=== PATIENT | female | born 1990 | race Caucasian/White ===

== ENCOUNTER 2017-02-21 09:11 | Inpatient (IN) | payer MEDICAID ==
[~2017-02-21] VITALS: Ht 170.2 cm; Wt 77.0 kg
[2017-02-21] VITALS (40 sets, daily range): BP systolic 88–140; BP diastolic 45–94; PULSE 66–146; RESP 17–20; TEMP 97.9–99
[~2017-02-21 09:11] MED LIST: MACR100C PO; PREN0.01 PO; ZOFR4TAB3 SL
[2017-02-21] MEDS ORDERED: LACTATED RINGER'S 1000 ML INJ 1,000 ML IV SCH (09:26)
[2017-02-21] MEDS ORDERED: LACTATED RINGER'S 1000 ML INJ 1,000 ML IV PRN (09:26)
--- NOTE | 2017-02-21 09:26 | PD ---
HPI Chief Complaint Contractions since early this morning Date Seen: Feb 21, 2017 Time Seen: 09:21 Travel History International Travel<30 Days: No Contact w/Intl Traveler<30Days: No Known Affected Area: No History of Present Illness HPI [age] female at 37 weeks today comes in today complaining of contractions for the past several hours markedly more intense over the past 2 hours. Denies any complications or problems denies rupture membranes or vaginal bleeding. Para: 2 : 3 History Past Medical History Medical History: Denies Significant Hx Obstetric History Obstetric History Spontaneous vaginal delivery 2 Past Surgical History Surgical History: No Previous Surgery Family History Family History: Negative Social History Alcohol Use: No Tobacco Use: No Substance Abuse: No Allergies-Medications (Allergen,Severity, Reaction): Coded Allergies: No Known Allergies (Verified , 07/26/16) Home Meds Active Scripts Multivit/Min/Fol Ac/Iron/Pren ( Vit ( Plus)) Tab1 Tab PO DAILY #100 TAB Ref 3 Prov:Melanie Nam MD 07/26/16 Ondansetron (Zofran ODT)4 Mg Tab4 Mg SL q6h PRN (NAUSEA) #10 TAB FOR NAUSEA/VOMITING Prov:Melanie Nam MD 07/26/16 Nitrofurantoin Monohyd Macro (Macrobid)100 Mg [id number] Mg PO BID #10 CAP Prov:Melanie Nam MD 07/26/16 Review of Systems Except as stated in HPI: all other systems reviewed are Neg Physical Exam Narrative GENERAL: Well-nourished, well-developed patient. SKIN: Warm and dry. HEAD: Normocephalic and atraumatic. EYES: No scleral icterus. No injection or drainage. ENT: No nasal drainage noted. Mucous membranes pink. Airway patent. NECK: Supple, trachea midline. No JVD. CARDIOVASCULAR: Regular rate and rhythm without murmurs, gallops, or rubs. RESPIRATORY: Breath sounds equal bilaterally. No accessory muscle use. BREASTS: Bilateral exam showed no masses , no retractions, no nipple discharge. ABDOMEN/GI: Abdomen soft, non-tender, bowel sounds present, no rebound, no guarding Gravid to [-] weeks size Fundal Height: [-40] GENITOURINARY: External Genitalia: intact and normal in appearance BUS glands: Normal Cervix: Mid position Dilatation: 5-6 Effacement: 80 Station: -2 Presentation: Vertex Membranes: Intact Uterine Contractions: Every 3 minutes FHT's: Category: 1 Baseline: 140 Reactive: Moderate Variability: Moderate Decels: Absent EXTREMITIES: No cyanosis or edema. BACK: Nontender without obvious deformity. No CVA tenderness. NEUROLOGICAL: Awake and alert. Motor and sensory grossly within normal limits. Five out of 5 muscle strength in all muscle groups. Normal speech. Data Data Vital Signs Reviewed: Yes MDM Plan 27-year-old female who is at 37 weeks gestation comes in active labor. GBS is unknown at this time Dr. Jaramillo was notified of patient's admission Diagnosis Diagnosis: Primary Impression: 37 weeks gestation of Additional Impression: Irregular contractions Roxanna Hong MD Feb 21, 2017 09:26
[2017-02-21] MEDS ORDERED: ONDANSETRON HCL 4 MG/2 ML VIAL IV PRN (09:30)
[2017-02-21] MEDS ORDERED: CITRIC ACID-SODIUM CITRATE LIQ 30 ML UDC PO SCH (09:30)
[2017-02-21] MEDS ORDERED: LIDOCAINE HCL 1% 50 ML VIAL INFIL PRN (09:30)
[2017-02-21] MEDS ORDERED: MINERAL OIL 10 ML VIAL TOPICAL PRN (09:30)
[2017-02-21] MEDS ORDERED: OXYTOCIN 30 UNITS-500ML PREMIX 500 ML IV ONE ×2 (09:30→12:00)
[2017-02-21] MEDS ORDERED: SODIUM CHLORID 0.9% 500 ML INJ 500 ML IV PRN (09:30)
[2017-02-21] MEDS ORDERED: LIDOCAINE HCL 1% 50 ML VIAL I-DERMAL PRN (09:30)
[2017-02-21 09:45] LABS: BASOPHIL # 0.1 TH/MM3 (0-0.2); BASOPHIL % 0.4 % (0.0-2.0); EOSINOPHIL # 0.1 TH/MM3 (0-0.4); EOSINOPHIL % 0.7 % (0.0-4.0); HEMATOCRIT 33.4 % (35.0-46.0); HEMO FLAGS DIFF FINAL; LYMPH % 21.3 % (9.0-44.0); MEAN CELL VOLUME 82.1 FL (80.0-100.0); MEAN CORPUSCULAR HGB CONC 32.9 % (32.0-36.0); MONO % 6.9 % (0.0-8.0); NEUT % 70.7 % (16.0-70.0); PLATELET COUNT 283 TH/MM3 (150-450); RED BLOOD COUNT 4.07 MIL/MM3 (4.00-5.30); RED CELL DISTRIBUTION WIDTH 13.7 % (11.6-17.2); WHITE BLOOD COUNT 14.1 TH/MM3 (4.0-11.0)
[2017-02-21] MEDS ORDERED: SODIUM CHLOR 0.9% 1000 ML INJ 1,000 ML IV PRN (09:46)
[2017-02-21] MEDS ORDERED: fentaNYL 2MCG-BUPIV 0.125% INJ 100 ML ONE (09:56)
[2017-02-21] MEDS ORDERED: OXYTOCIN 30 UNITS-500ML PREMIX 500 ML IV SCH (10:30)
[2017-02-21] MEDS ORDERED: DO NOT ADMINISTER ANTICOAGULANTS XX PRN (10:45)
[2017-02-21] MEDS ORDERED: ePHEDrine/NS 25 MG/5 ML SYR IV PRN (10:45)
[2017-02-21] MEDS ORDERED: NO SYSTEM NARCOTICS XX PRN (10:45)
[2017-02-21] MEDS ORDERED: fentaNYL 2MCG-BUPIV 0.125% 100 ML EPIDURAL SCH (10:45)
--- NOTE | 2017-02-21 11:52 | PD.OB.DELI ---
Anesthesia: Epidural Episiotomy: None Vaginal Delivery: Normal Presentation: Occiput anterior Nuchal Cord: None Infant: Male One Minute : 8 Five Minute : 9 Weight: 6-9 Placenta: Manual removal Laceration: 1 deg Radha Jaramillo MD Feb 21, 2017 11:52
[2017-02-21] MEDS ORDERED: ALUMINUM/MAGNESIUM/SIMETH 30 ML CUP PO PRN (12:00)
[2017-02-21] MEDS ORDERED: ZOLPIDEM TARTRATE 5 MG TAB PO PRN (12:00)
[2017-02-21] MEDS ORDERED: ONDANSETRON ODT 4 MG TAB PO PRN (12:00)
[2017-02-21] MEDS ORDERED: BENZOCAINE 20% TOPICAL SPRAY 60 ML CAN TOPICAL PRN (12:00)
[2017-02-21] MEDS ORDERED: SODIUM CHLORIDE 0.9% FLUSH 10 ML FLUSH IV FLUSH PRN (12:00)
[2017-02-21] MEDS ORDERED: ACETAMINOPHEN 325 MG TAB PO PRN (12:00)
[2017-02-21] MEDS ORDERED: DOCUSATE SODIUM 50 MG/SENNA 8.6 MG TAB PO PRN (12:00)
[2017-02-21] MEDS ORDERED: WITCH HAZEL 50%/GLYCERIN 12.5% 40 PAD JAR TOPICAL PRN (12:00)
[2017-02-21 15:04] LABS: RAPID PLASMA REAGIN SCREEN NON-REACTIVE (NON-REACTVE)
[2017-02-21] MEDS ORDERED: DIPHTH/TETANUS/ACEL PERTUSSIS (BOOSTER) 0.5 ML VIAL/PFS IM ONE (16:00)
[2017-02-21] MEDS ORDERED: MEASLES, MUMPS, RUBELLA VACCINE 0.5 ML VIAL SQ ONE (16:00)
[2017-02-21] MEDS: IBUPROFEN 600 MG TAB PO PRN (20:29)
[2017-02-21] MEDS ORDERED: SODIUM CHLORIDE 0.9% FLUSH 10 ML FLUSH IV FLUSH SCH (21:00)
[2017-02-22] MEDS: IBUPROFEN 600 MG TAB PO PRN ×2 (02:05→09:26)
[2017-02-22] MEDS: ACETAMINOPHEN/HYDROcodone 325 MG/7.5 MG TAB PO PRN ×2 (04:46→10:56)
[2017-02-22 08:30] VITALS: BP 126/67; PULSE 66; RESP 18; TEMP 97.9
--- NOTE | 2017-02-22 11:44 | HHI.OB ---
Subjective Post Day: 1 Remarks Was in shower when I came in and planned to return at lunch has since asked for discharge to be home with [age] year old Objective Vitals/I&O Vital Signs Date Time Temp Pulse Resp B/P Pulse Ox O2 Delivery O2 Flow Rate FiO2 02/21/17 20:30 97.9 74 20 140/79 02/21/17 16:35 99.0 70 18 115/66 02/21/17 13:15 74 110/61 02/21/17 13:15 17 02/21/17 13:00 98.8 02/21/17 13:00 66 108/62 02/21/17 12:46 66 115/65 02/21/17 12:30 71 111/70 02/21/17 12:17 89 108/85 02/21/17 12:00 18 02/21/17 11:56 80 118/69 02/21/17 11:51 86 109/69 02/21/17 11:46 71 112/60 02/21/17 11:45 18 Objective Remarks Medications and IVs Current Medications Medications (Trade) Dose Ordered Sig/Rigo Route Start Time Stop Time Status Last Admin (NS Flush) 2 ml BID IV FLUSH 02/21/17 21:00 (NS Flush) 2 ml UNSCH PRN IV FLUSH 02/21/17 12:00 (Tylenol) 650 mg Q4H PRN PO 02/21/17 12:00 02/22/17 02:05 (Motrin) 600 mg Q6H PRN PO 02/21/17 12:00 02/22/17 09:26 (Americaine 20% Top Spr) 1 spray Q4H PRN TOPICAL 02/21/17 12:00 02/21/17 20:29 (Tucks Pads) 1 applic QID PRN TOPICAL 02/21/17 12:00 02/21/17 20:29 (Britt-Colace) 2 tab Q12H PRN PO 02/21/17 12:00 (Ambien) 5 mg HS PRN PO 02/21/17 12:00 (Mag-Al Plus Susp Liq) 15 ml Q8H PRN PO 02/21/17 12:00 (Zofran Odt) 4 mg Q6H PRN PO 02/21/17 12:00 ([place] 7.5-325 Mg) 1 tab Q6H PRN PO 02/22/17 03:30 02/22/17 10:56 Assessment/Plan Assessment and Plan Home with motrin comfortable with no questions Delfina Beltre MD Feb 22, 2017 11:44
--- NOTE | 2017-02-22 11:46 | HHI.DCPOC ---
Discharge Care Plan Report Symptoms to Your Doctor -Temperate above 100.5 degrees -Redness, of incision or excessive or foul smelling drainage -Unusual pain or calf pain -Increased vaginal bleeding -Painful or difficulty urinating -Feelings of extreme sadness or anxiety after 2 weeks Goals to Promote Your Health * To prevent worsening of your condition and complications * To maintain your health at the optimal level Directions to Meet Your Goals Take your medications as prescribed Follow your dietary instruction Follow activity as directed Ensure plenty of rest for recovery Drink fluids for hydration Keep your appointments as scheduled Take your immunizations and boosters as scheduled If your symptoms worsen call your PCP, if no PCP go to Urgent Care Center or Emergency Room Smoking is Dangerous to Your Health. Avoid second hand smoke Call the 24-hour crisis hotline for domestic abuse at Delfina Beltre MD Feb 22, 2017 11:46
== END 2017-02-22 14:32 | disposition home or self-care (01) | DRG 767 ==
LOC: HOBED 09:11 → H2EA 09:30 → H1EA 14:10
PROVIDERS: ADMIT Obstetrics & Gynecology; ATTEND Obstetrics & Gynecology
PROC: 10E0XZZ Delivery of Products of Conception, External Approach (ICD-10-PCS; principal; 2017-02-21)
PROC: 10D17ZZ Extraction of Products of Conception, Retained, Via Natural or Artificial Opening (ICD-10-PCS; 2017-02-21)
PROC: 3E0S3CZ (ICD-10-PCS; 2017-02-21)
PROC: 00HU33Z Insertion of Infusion Device into Spinal Canal, Percutaneous Approach (ICD-10-PCS; 2017-02-21)
DX: O70.0 First degree perineal laceration during delivery (principal); Z37.0 Single live birth; Z3A.37 37 weeks gestation of pregnancy
CPT/HCPCS: 59025; 85025; 86592; 86900; 86901; 88307; 99285; J2590; J3010; J7120

== ENCOUNTER 2018-02-18 09:43 | Inpatient (IN) | payer SELFPAY ==
[~2018-02-18] VITALS: Ht 170.2 cm; Wt 66.0 kg
[2018-02-18] VITALS (13 sets, daily range): BP systolic 118–141; BP diastolic 62–92; PULSE 45–101; RESP 15–19; TEMP 97.7–98.2; O2SAT 92–99
[~2018-02-18 09:43] MED LIST changes: -MACR100C PO; -ZOFR4TAB3 SL
[2018-02-18] MEDS ORDERED: IOHEXOL 350 MG/ML 10 ML VIAL (for RAD DIAG) IVCONTRAST ONE (09:44)
[2018-02-18] MEDS ORDERED: SODIUM CHLOR 0.9% 1000 ML INJ 1,000 ML IV SCH (10:54)
[2018-02-18] MEDS ORDERED: MORPHINE SULFATE 8 MG/ML INJ IV PUSH ONE (11:00)
[2018-02-18] MEDS ORDERED: ONDANSETRON HCL 4 MG/2 ML VIAL IVP ONE (11:00)
[2018-02-18] MEDS ORDERED: ALUMINUM/MAGNESIUM/SIMETH 30 ML CUP PO ONE (11:00)
[2018-02-18] MEDS ORDERED: LIDOCAINE VISCOUS 2% SOLN 15 ML UDC PO ONE (11:00)
--- NOTE | 2018-02-18 11:28 | PD ---
HPI Chief Complaint: Abdominal Pain Time Seen by Provider: 10:53 Travel History International Travel<30 days: No Contact w/Intl Traveler<30days: No History of Present Illness HPI 28-year-old female complains of abdominal pain for about 2 days. It is generalized constant and severe. The patient finds that taking long showers helps. She reports chest pain started last night. No vomiting or fever. No diarrhea. No urinary complaint. No similar prior episode. There is no pleuritic chest pain or cough. PFSH Past Medical History Hx Anticoagulant Therapy: No Cardiovascular Problems: No Chemotherapy: No Cerebrovascular Accident: No Diabetes: No Diminished Hearing: No Gastrointestinal Disorders: Yes (chronic abdominal pain ) Respiratory: No Tetanus Vaccination: < 5 Years Influenza Vaccination: No ?: Unknown LMP: I HAVE AN IUD : 1 Para: 1 Miscarriage: 0 : 0 Past Surgical History Surgical History: No Previous Surgery Hysterectomy: No Social History Alcohol Use: No Tobacco Use: No Substance Use: Yes (CANNABIS OCC) Allergies-Medications (Allergen,Severity, Reaction): Coded Allergies: No Known Allergies (Verified Adverse Reaction, Unknown, 02/18/18) Reported Meds & Prescriptions Reported Meds & Active Scripts Active No Active Prescriptions or Reported Medications Review of Systems Except as stated in HPI: all other systems reviewed are Neg General / Constitutional: No: Fever Cardiovascular: Positive: Chest Pain or Discomfort Respiratory: No: Cough, Shortness of Breath Physical Exam Narrative GENERAL: 28 yo F, WNWD, moderate distress 2/2 pain and/or anxiety Vital Signs Date Time Temp Pulse Resp B/P (MAP) Pulse Ox O2 Delivery O2 Flow Rate FiO2 02/18/18 11:24 99 Room Air 02/18/18 10:55 77 19 138/88 (105) 99 Room Air 02/18/18 09:58 98.2 101 18 135/92 (106) 96 SKIN: Warm and dry. HEAD: Atraumatic. Normocephalic. EYES: Pupils equal and round. No scleral icterus. No injection or drainage. ENT: No nasal bleeding or discharge. Mucous membranes pink and moist. NECK: Trachea midline. No JVD. CARDIOVASCULAR: Regular rate and rhythm. RESPIRATORY: No accessory muscle use. Clear to auscultation. Breath sounds equal bilaterally. GASTROINTESTINAL: Soft. No focus of tenderness. MUSCULOSKELETAL: Extremities without clubbing, cyanosis, or edema. No obvious deformities. NEUROLOGICAL: Awake and alert. No obvious cranial nerve deficits. Motor grossly within normal limits. Five out of 5 muscle strength in the arms and legs. Normal speech. PSYCHIATRIC: Appropriate mood and affect; insight and judgment normal. Data Data Last Documented VS Vital Signs Date Time Temp Pulse Resp B/P (MAP) Pulse Ox O2 Delivery O2 Flow Rate FiO2 02/18/18 13:35 58 17 127/79 (95) 98 Nasal Cannula 02/18/18 12:15 2.00 02/18/18 09:58 98.2 Orders Orders Complete Blood Count With Diff (02/18/18 10:54) Comprehensive Metabolic Panel (02/18/18 10:54) Lipase (02/18/18 10:54) Lactic Acid (02/18/18 10:54) Urinalysis - C+S If Indicated (02/18/18 10:54) Iv Access Insert/Monitor (02/18/18 10:54) Ecg Monitoring (02/18/18 10:54) Oximetry (02/18/18 10:54) Ondansetron Inj (Zofran Inj) (02/18/18 11:00) Sodium Chlor 0.9% 1000 Ml Inj (Ns 1000 M (02/18/18 10:54) Sodium Chloride 0.9% Flush (Ns Flush) (02/18/18 11:00) Electrocardiogram (02/18/18 10:54) Chest, Single Ap (02/18/18 10:54) Morphine Inj (Morphine Inj) (02/18/18 11:00) Al-Mag Hy-Si 40-40-4 Mg/Ml Liq (Mag-Al P (02/18/18 11:00) Lidocaine 2% Viscous (Xylocaine 2% Visco (02/18/18 11:00) Ed Urine Pregnancytest Poc (02/18/18 10:54) Ct Abd/Pel W Iv Contrast(Rout) (02/18/18 10:57) Ct Pulmonary Angiogram (02/18/18 11:44) Sodium Chlor 0.9% 1000 Ml Inj (Ns 1000 M (02/18/18 12:15) Piperacil-Tazo 4.5 Gm Premix (Zosyn 4.5 (02/18/18 12:15) Iohexol 350 Inj (Omnipaque 350 Inj) (02/18/18 09:44) Hydromorphone Pf Inj (Dilaudid Pf Inj) (02/18/18 13:00) Gastrografin Swallow (02/18/18 ) Admit Order (Ed Use Only) (02/18/18 ) Machine Shop Helper / Telemetry MEGAN.Q8H (02/18/18 13:33) Vital Signs (Adult) Q4H (02/18/18 13:33) Diet Npo (02/18/18 Lunch) Activity Bed Rest (02/18/18 13:33) Notify Dr: Other (02/18/18 13:33) Labs Laboratory Tests Test 02/18/18 11:15 White Blood Count 23.8 TH/MM3 Red Blood Count 5.46 MIL/MM3 Hemoglobin 13.8 GM/DL Hematocrit 41.2 % Mean Corpuscular Volume 75.3 FL Mean Corpuscular Hemoglobin 25.2 PG Mean Corpuscular Hemoglobin Concent 33.5 % Red Cell Distribution Width 17.8 % Platelet Count 492 TH/MM3 Mean Platelet Volume 9.8 FL Neutrophils (%) (Auto) 88.1 % Lymphocytes (%) (Auto) 6.1 % Monocytes (%) (Auto) 5.6 % Eosinophils (%) (Auto) 0.0 % Basophils (%) (Auto) 0.2 % Neutrophils # (Auto) 21.0 TH/MM3 Lymphocytes # (Auto) 1.5 TH/MM3 Monocytes # (Auto) 1.3 TH/MM3 Eosinophils # (Auto) 0.0 TH/MM3 Basophils # (Auto) 0.0 TH/MM3 CBC Comment DIFF FINAL Differential Comment Blood Urea Nitrogen 41 MG/DL Creatinine 1.51 MG/DL Random Glucose 134 MG/DL Total Protein 10.7 GM/DL Albumin 5.5 GM/DL Calcium Level 9.5 MG/DL Alkaline Phosphatase 83 U/L Aspartate Amino Transf (AST/SGOT) 28 U/L Alanine Aminotransferase (ALT/SGPT) 51 U/L Total Bilirubin 0.8 MG/DL Sodium Level 137 MEQ/L Potassium Level 3.1 MEQ/L Chloride Level 98 MEQ/L Carbon Dioxide Level 21.3 MEQ/L Anion Gap 18 MEQ/L Estimat Glomerular Filtration Rate 40 ML/MIN Lactic Acid Level 1.8 mmol/L Lipase 118 U/L MDM Medical Decision Making Medical Screen Exam Complete: Yes Emergency Medical Condition: Yes Medical Record Reviewed: Yes Differential Diagnosis Gastritis, pancreatitis, appendicitis, acute cholecystitis, ascending cholangitis, AAA, perforated viscous, mesenteric ischemia, hepatitis, cystitis, hydronephrosis/hydroureter/nephroureter calculus, mesenteric adenitis, biliary colic Narrative Course CBC & BMP Diagram 02/18/18 11:15 Total Protein 10.7 H, Albumin 5.5 H, Calcium Level 9.5, Alkaline Phosphatase 83 , Aspartate Amino Transf (AST/SGOT) 28, Alanine Aminotransferase (ALT/SGPT) 51, Total Bilirubin 0.8 Anion gap is 18 Lactic acid is 1.8 U preg: negative CT called shortly after receipt of CXR images. Pt with significant pain relief after 5mg Morphine. calls placed to GI, thoracic surgery and forensic engineer service at 115pm d/w Dr Perez of GI at 120pm, gastrograffin swallow ordered, no endoscopy d/w Dr Thomas of thoracic surgery d/w Dr Leon of forensic engineer service Critical Care Narrative Aggregate critical care time was 45 minutes. Time to perform other separately billable procedures was not included in the critical care time. My time did not include minutes spent treating any other patients simultaneously or on activities that did not directly contribute to the patient's treatment. The services I provided to this patient were to treat and/or prevent clinically significant deterioration that could result in: Septic shock, cardiopulmonary arrest I provided critical care services requiring my management, as noted below: Chart data review, documentation time, medication orders and management, vital sign assessments/reviewing monitor data, ordering and reviewing lab tests, ordering and interpreting/reviewing x-rays and diagnostic studies, care of the patient and discussion of the patient with the admitting physicians. Diagnosis Primary Impression: Pneumomediastinum Additional Impressions: Dry heaves Hypokalemia Admitting Information Admitting Physician Requests: Admit Scripts No Active Prescriptions or Reported Meds Dany Boone MD Feb 18, 2018 11:28
--- NOTE | 2018-02-18 11:32 | RADRPT ---
EXAM DATE/TIME: 02/18/2018 11:00 [facility] COMPARISON: No previous studies available for comparison. INDICATIONS : Chest pain. MEDICAL HISTORY : None. SURGICAL HISTORY : None. ENCOUNTER: Initial ACUITY: 2 days PAIN SCORE: 8/10 LOCATION: Bilateral chest FINDINGS: Subcutaneous emphysema is noted within the right chest wall and right supraclavicular region. No defi nite pneumothorax is identified on the right on this plain film. CT of the chest would be more sensit mayte to rule out subtle pneumothorax in this patient if clinically indicated. The heart is normal. The pulmonary vascular pattern is normal. The lungs are clear. CONCLUSION: Subcutaneous emphysema within the right chest wall and right supraclavicular region there no definite pneumothorax is identified on the right on the plain film. CT of the chest would be more sensitive t o rule out subtle pneumothorax in this patient if clinically indicated. Gian Mendez MD on February 18, 2018 at 11:26 Board Certified Radiologist. This report was verified electronically.
[2018-02-18 12:00] LABS: BASOPHIL % 0.2 % (0.0-2.0); HEMATOCRIT 41.2 % (35.0-46.0); HEMOGLOBIN 13.8 GM/DL (11.6-15.3); LYMPH % 6.1 % (9.0-44.0); LYMPHOCYTE # 1.5 TH/MM3 (1.0-4.8); MEAN CELL VOLUME 75.3 FL (80.0-100.0); MEAN CORPUSCULAR HEMOGLOBIN 25.2 PG (27.0-34.0); MEAN CORPUSCULAR HGB CONC 33.5 % (32.0-36.0); MEAN PLATELET VOLUME 9.8 FL (7.0-11.0); MONO % 5.6 % (0.0-8.0); MONOCYTE # 1.3 TH/MM3 (0-0.9); NEUT % 88.1 % (16.0-70.0); PLATELET COUNT 492 TH/MM3 (150-450); RED BLOOD COUNT 5.46 MIL/MM3 (4.00-5.30); RED CELL DISTRIBUTION WIDTH 17.8 % (11.6-17.2); WHITE BLOOD COUNT 23.8 TH/MM3 (4.0-11.0)
[2018-02-18 12:12] LABS: ALBUMIN 5.5 GM/DL (3.4-5.0); AST (GOT) 28 U/L (15-37); BICARBONATE 21.3 MEQ/L (21.0-32.0); BLOOD UREA NITROGEN 41 MG/DL (7-18); CALCIUM 9.5 MG/DL (8.5-10.1); CHLORIDE 98 MEQ/L (98-107); CREATININE 1.51 MG/DL (0.50-1.00); GLOMERULAR FILTRATION RATE 40 ML/MIN (>89); GLUCOSE,RANDOM 134 MG/DL (74-106); SODIUM (NA) 137 MEQ/L (136-145)
[2018-02-18 12:14] LABS: ALT (GPT) 51 U/L (10-53)
[2018-02-18] MEDS ORDERED: SODIUM CHLOR 0.9% 1000 ML INJ 1,000 ML IV ONE (12:15)
[2018-02-18] MEDS ORDERED: PIPERACIL-TAZO 4.5 GM PREMIX 100 ML IV ONE (12:15)
[2018-02-18 12:16] LABS: ALKALINE PHOSPHATASE 83 U/L (45-117); TOTAL BILIRUBIN ADULT 0.8 MG/DL (0.2-1.0); TOTAL PROTEIN 10.7 GM/DL (6.4-8.2)
--- NOTE | 2018-02-18 12:48 | RADRPT ---
EXAM DATE/TIME: 02/18/2018 12:25 [facility] COMPARISON: No previous studies available for comparison. INDICATIONS : Generalized, constant abdominal pain. IV CONTRAST: 72 cc Omnipaque 350 (iohexol) IV ; Cumulative dose for multiple exams. ORAL CONTRAST: No oral contrast ingested. RADIATION DOSE: 8.5 CTDIvol (mGy) MEDICAL HISTORY : Chronic abdominal pain. SURGICAL HISTORY : None. ENCOUNTER: Initial ACUITY: 2 days PAIN SCALE: 4/10 LOCATION: Bilateral lower quadrant TECHNIQUE: Volumetric scanning of the abdomen and pelvis was performed. Using automated exposure control and ad justment of the mA and/or kV according to patient size, radiation dose was kept as low as reasonably achievable to obtain optimal diagnostic quality images. DICOM format image data is available electro nically for review and comparison. FINDINGS: LOWER LUNGS: Pneumomediastinum is noted. The visualized lower lungs are clear. LIVER: Homogeneous density without lesion. There is no dilation of the biliary tree. No calcified gallston es. SPLEEN: Normal size without lesion. PANCREAS: Within normal limits. KIDNEYS: Normal in size and shape. There is no mass, stone or hydronephrosis. ADRENAL GLANDS: Within normal limits. VASCULAR: There is no aortic aneurysm. BOWEL/MESENTERY: The stomach, small bowel, and colon demonstrate no acute abnormality. There is no free intraperitone al air or fluid. ABDOMINAL WALL: Within normal limits. RETROPERITONEUM: There is no lymphadenopathy. BLADDER: No wall thickening or mass. REPRODUCTIVE: Within normal limits. IUD is noted. INGUINAL: There is no lymphadenopathy or hernia. MUSCULOSKELETAL: Within normal limits for patient age. CONCLUSION: 1. Pneumomediastinum of indeterminate etiology. 2. No free intraperitoneal air. Gian Mendez MD on February 18, 2018 at 12:40 Board Certified Radiologist. This report was verified electronically.
--- NOTE | 2018-02-18 12:49 | RADRPT ---
EXAM DATE/TIME: 02/18/2018 12:25 [facility] COMPARISON: No previous studies available for comparison. INDICATIONS : Chest pain and shortness of breath. IV CONTRAST: 72 cc Omnipaque 350 (iohexol) IV ; Cumulative dose for multiple exams. RADIATION DOSE: 6.28 CTDIvol (mGy) MEDICAL HISTORY : Chronic abdominal pain. SURGICAL HISTORY : None. ENCOUNTER: Initial ACUITY: 4 - 6 days PAIN SCALE: 3/10 LOCATION: Bilateral upper chest TECHNIQUE: Volumetric scanning of the chest was performed using a pulmonary embolism protocol MIP images were re constructed. Using automated exposure control and adjustment of the mA and/or kV according to patien t size, radiation dose was kept as low as reasonably achievable to obtain optimal diagnostic quality images. DICOM format image data is available electronically for review and comparison. Follow-up recommendations for detected pulmonary nodules are based at a minimum on nodule size and pa tient risk factors according to Fleischner Society Guidelines. FINDINGS: There is extensive subcutaneous emphysema seen in the upper chest. This extends around the right shou lder region. There is extensive mediastinal air. Air is seen in these extradural spinal canal. PULMONARY ARTERIES: No filling defects are seen in the pulmonary arteries through the segmental level. LUNGS: There is no consolidation or pneumothorax . No concerning pulmonary nodule is visualized. PLEURAE: There is no pleural thickening or pleural effusion. MEDIASTINUM: Again noted is the extensive pneumomediastinum and this extends from the thoracic inlet level down to the lower chest around the distal esophagus. MUSCULOSKELETAL: Within normal limits for patient age. MISCELLANEOUS: Air is seen in the retrocrural region in the upper abdomen. CONCLUSION: 1. Extensive pneumomediastinum and subcutaneous emphysema. Air is seen to surround the thecal sac and extends into the retrocrural region. 2. No pulmonary embolus. David Dominguez MD on February 18, 2018 at 12:40 Board Certified Radiologist. This report was verified electronically.
[2018-02-18] MEDS ORDERED: HYDROmorphone HCL PF 2 MG/ML VIAL IV PUSH ONE ×2 (13:00→14:00)
[2018-02-18] MEDS ORDERED: LACTATED RINGER'S 1000 ML INJ 1,000 ML IV ONE (14:15)
--- NOTE | 2018-02-18 14:59 | RADRPT ---
EXAM DATE/TIME: 02/18/2018 14:11 [facility] COMPARISON: No previous studies available for comparison. INDICATIONS : Chest pain. Possible torned esophagus. FLUORO TIME: 1.2 minutes IMAGE COUNT: 17 CONTRAST: 1. Gastrografin (Diatrizoate Meglumine and Diatrizoate Sodium) MEDICAL HISTORY : None. SURGICAL HISTORY : None. ENCOUNTER: Initial ACUITY: 4 - 6 days PAIN SCORE: 10/10 LOCATION: Chest. FINDINGS: Examination of the esophagus demonstrates the swallowing function to be normal. There is no evidence of aspiration or penetration. The body of the esophagus is unremarkable. The esophageal transit ti me is normal. No esophageal tear is seen. The patient has pneumomediastinum and subcutaneous emphysema. CONCLUSION: Unremarkable examination of the esophagus. No esophageal tear or extravasation was s een. David Dominguez MD on February 18, 2018 at 14:55 Board Certified Radiologist. This report was verified electronically.
[2018-02-18] MEDS ORDERED: DIATRIZOATE MEGLUM/DIATRIZOATE SOD 120 ML BTL (for RAD DIAG) PO ONE (15:06)
--- NOTE | 2018-02-18 15:09 | PD.CONS ---
HPI History of Present Illness This is a 28 year old F who denies past medical history. Pt presented to [facility] today with complaints of abdominal pain for the past 2 days, states intermittent, generalized to entire abdomen. Unsure of aggravating factors but states hot showers help to relieve the pain. Denies associated nausea and vomiting, however reports she was dry heaving yesterday. Does admit to some occasional dysphagia, denies odynophagia. Also complaining of chest pain that began last night. CTA done in ER revealed extensive pneumomediastinum and subcutaneous emphysema. Air is seen to surround the thecal sac and extends into the retrocrural region. Cardiothoracic surgery and razor grinder has also been consulted along with our service to further management. Barium swallow ordered, results pending. Pt denies ETOH and smoking. According to ER notes does admit to occasional marijuana use. Denies ever having EGD in the past. (Bety Boles) PFSH Past Medical History Denies Past Surgical History IUD placement (Bety Boles) Coded Allergies: No Known Allergies (Verified Allergy, Unknown, 02/18/18) Social History Denies ETOH Denies smoking Admits to occasional marijuana (Bety Boles) Review of Systems Gastrointestinal: COMPLAINS OF: Abdominal pain, Constipation, Difficulty Swallowing, DENIES: Black stools, Bloody stools, Diarrhea, Nausea, Vomiting, Odynophagia, Swelling of Abdomen, Heartburn, Hematemesis (Bety Boles) GI Exam Vitals I&O Vital Signs Date Time Temp Pulse Resp B/P (MAP) Pulse Ox O2 Delivery O2 Flow Rate FiO2 02/18/18 14:33 60 18 122/68 (86) 99 Nasal Cannula 02/18/18 13:35 58 17 127/79 (95) 98 Nasal Cannula 02/18/18 12:15 58 15 129/71 (90) 98 Nasal Cannula 2.00 02/18/18 11:30 68 16 134/82 (99) 98 Nasal Cannula 2.00 02/18/18 11:24 99 Room Air 02/18/18 10:55 77 19 138/88 (105) 99 Room Air 02/18/18 09:58 98.2 101 18 135/92 (106) 96 I/O 3/23/18 302/17/18 02/18/18 02/18/18 02/18/18 07:00 15:00 23:00 07:00 15:00 23:00 Intake Total 2100 ml Balance 2100 ml Intake IV Total 2100 ml Laboratory Test 02/18/18 11:15 White Blood Count 23.8 TH/MM3 Red Blood Count 5.46 MIL/MM3 Hemoglobin 13.8 GM/DL Hematocrit 41.2 % Mean Corpuscular Volume 75.3 FL Mean Corpuscular Hemoglobin 25.2 PG Mean Corpuscular Hemoglobin Concent 33.5 % Red Cell Distribution Width 17.8 % Platelet Count 492 TH/MM3 Mean Platelet Volume 9.8 FL Neutrophils (%) (Auto) 88.1 % Lymphocytes (%) (Auto) 6.1 % Monocytes (%) (Auto) 5.6 % Eosinophils (%) (Auto) 0.0 % Basophils (%) (Auto) 0.2 % Neutrophils # (Auto) 21.0 TH/MM3 Lymphocytes # (Auto) 1.5 TH/MM3 Monocytes # (Auto) 1.3 TH/MM3 Eosinophils # (Auto) 0.0 TH/MM3 Basophils # (Auto) 0.0 TH/MM3 CBC Comment DIFF FINAL Differential Comment Blood Urea Nitrogen 41 MG/DL Creatinine 1.51 MG/DL Random Glucose 134 MG/DL Total Protein 10.7 GM/DL Albumin 5.5 GM/DL Calcium Level 9.5 MG/DL Alkaline Phosphatase 83 U/L Aspartate Amino Transf (AST/SGOT) 28 U/L Alanine Aminotransferase (ALT/SGPT) 51 U/L Total Bilirubin 0.8 MG/DL Sodium Level 137 MEQ/L Potassium Level 3.1 MEQ/L Chloride Level 98 MEQ/L Carbon Dioxide Level 21.3 MEQ/L Anion Gap 18 MEQ/L Estimat Glomerular Filtration Rate 40 ML/MIN Lactic Acid Level 1.8 mmol/L Lipase 118 U/L Physical Examination HEENT: Normocephalic; atraumatic CHEST: Even/unlabored- NC at bedside, she is note wearing it. Subcutaneous emphysema to right side CARDIAC: RRR ABDOMEN: Soft, nondistended, nontender; bowel sounds active SKIN: Normal; no rash; no jaundice. MORTAR MIXER OPERATOR: No focal deficits; alert and oriented times three. (Bety Boles) Assessment and Plan Plan Assessment: - Pneumomediastinum- Pt admits to chest pain that began yesterday. Denies nausea and vomiting, however admits to dry heaving yesterday, denies forceful retching. Denies history of EGD. Cardiothoracic surgery consult has already been placed. Barium swallow done, results pending. Pt on RA, in no apparent distress during my exam. NC at bedside is on but she is not wearing it - Abdominal pain- diffuse- states for the past three days- also complaining of chronic constipation- last BM was Tuesday CT abdomen and pelvis - No free intraperitoneal air. Pt has never had colonoscopy Plan: Barium swallow NPO Urine drugs screen Cardiothoracic surgery eval Dulcolax supp if needed Further recommendations based on Barium swallow results and clinical course Pt has been seen and examined by myself and Dr. Perez and this note is written on her behalf (Bety Boles) Physician Comments seen, examined agree with above ugi series negative for extravasation- history of significant nausea, vomiting few days before admission-possible small sealed tear in esophagus as the source of her pneumomediastinum history of cannabinoid hyperemesis syndrome, symptoms consistent with that- states last use of marijuana was 2 weeks ago -we will check toxicology ppi ice chips monitor x ray egd in 2-3 days depending on clinical course iv antibiotics (Aparna Perez MD) Bety Boles Feb 18, 2018 15:09 Aparna Perez MD Feb 18, 2018 17:59
[2018-02-18] MEDS ORDERED: POTASSIUM PHOSPHATE INJ 30 MMOL in SODIUM CHLOR 0.9% 250 ML INJ 250 ML IV PRN ×2 (17:30→23:45)
[2018-02-18] MEDS ORDERED: MISCELLANEOUS NURSING INFORMATION XX SCH (17:30)
[2018-02-18] MEDS ORDERED: PROCHLORPERAZINE 25 MG SUPP RECTAL PRN (17:30)
[2018-02-18] MEDS ORDERED: POTASSIUM CHLOR 40 MEQ PREMIX 100 ML IV PRN ×4 (17:30→23:45)
[2018-02-18] MEDS ORDERED: CHLORHEXIDINE GLUCONATE 2 % 1 PACK (2 CLOTHS) TOP PRN (17:30)
[2018-02-18] MEDS ORDERED: hydrALAZINE HCL 20 MG/ML VIAL IV PUSH PRN (17:30)
[2018-02-18] MEDS ORDERED: POTASSIUM PHOSPHATE MONOBASIC 500 MG TAB PO PRN ×2 (17:30→23:45)
[2018-02-18] MEDS ORDERED: RESP: ALBUTEROL 2.5 MG/IPRATROPIUM 0.5 MG NEB (PRN) INH (17:30)
[2018-02-18] MEDS ORDERED: MAGNESIUM SULFATE INJ 2 GM in SODIUM CHLORIDE 0.9% INJ 96 ML IV PRN ×2 (17:30→23:45)
[2018-02-18] MEDS ORDERED: LABETALOL HCL 100 MG/20 ML VIAL IV PUSH PRN (17:30)
[2018-02-18] MEDS ORDERED: MAGNESIUM SULFATE INJ 4 GM in SODIUM CHLORIDE 0.9% INJ 92 ML IV PRN ×2 (17:30→23:45)
[2018-02-18] MEDS ORDERED: POTASSIUM PHOSPHATE MONOBASIC 500 MG TAB PO/TUBE PRN ×2 (17:30→23:45)
[2018-02-18] MEDS ORDERED: POTASSIUM CHLORIDE 25 MEQ EFFERVESCENT TAB PO PRN ×2 (17:30→23:45)
[2018-02-18] MEDS ORDERED: MAGNESIUM OXIDE 400 MG TAB PO PRN ×2 (17:30→23:45)
[2018-02-18] MEDS ORDERED: DEXTROSE 50% IN WATER 50 ML VIAL(D50) IV PUSH PRN (17:30)
[2018-02-18] MEDS ORDERED: SODIUM PHOSPHATE INJ 30 MMOL in SODIUM CHLOR 0.9% 250 ML INJ 240 ML IV PRN ×2 (17:30→23:45)
[2018-02-18] MEDS ORDERED: POTASSIUM CHLOR 20 MEQ PREMIX 100 ML IV PRN ×4 (17:30→23:45)
[2018-02-18] MEDS: INSULIN NovoLIN REGULAR SUPPLEMENTAL SCALE SQ SCH (18:00)
[2018-02-18] MEDS: LACTATED RINGER'S 1000 ML INJ 1,000 ML IV SCH (18:06)
[2018-02-18] MEDS: PIPERACIL-TAZO 4.5 GM PREMIX 100 ML IV SCH (18:17)
[2018-02-18] MEDS: ONDANSETRON HCL 4 MG/2 ML VIAL IV PUSH PRN (18:32)
[2018-02-18] MEDS: FLUCONAZOLE 200 MG PREMIX BAG 100 ML IV SCH (18:33)
--- NOTE | 2018-02-18 19:13 | EKG ---
Date Performed: 02/18/2018 Time Performed: 11:10:39 PTAGE: 28 years EKG: Sinus rhythm WITH SINUS ARRHYTHMIA POSSIBLE RIGHT ATRIAL ENLARGEMENT POSSIBLE LEFT ATRIAL ENLARGEMENT MODERATE ST DEPRESSION ABNORMAL ECG NO PREVIOUS TRACING DOCTOR: Tasha Escobedo Interpretating Date/Time 02/18/2018 19:12:01
--- NOTE | 2018-02-18 19:31 | HHI.HP ---
HPI Service Critical Care Medicine Primary Care Physician No Primary Care Physician Admission Diagnosis Pneumomediastium Diagnosis: Travel History International Travel<30 Days: No Contact w/Intl Traveler <30 Da: No History of Present Illness 28-year-old female presents for evaluation of complains of abdominal pain for about 2 days. It is generalized constant and severe. The patient finds that taking long showers helps. She reports chest pain started last night. No vomiting or fever. No diarrhea. No urinary complaint. No similar prior episode. There is no pleuritic chest pain or cough. CTA done in the emergency department revealed extensive pneumomediastinum and subcutaneous emphysema. Air is seen to surround the thecal sac and extends into the retrocrural region. Cardiothoracic surgery and tip puncher has also been consulted. Review of Systems Constitutional: DENIES: Diaphoretic episodes, Fatigue, Fever, Weight gain, Weight loss, Chills, Dizziness, Change in appetite, Night Sweats Endocrine: DENIES: Abnorml menstrual pattern, Heat/cold intolerance, Polydipsia , Polyuria, Polyphagia Eyes: DENIES: Blurred vision, Diplopia, Eye inflammation, Eye pain, Vision loss , Photosensitivity, Double Vision Ears, nose, mouth, throat: DENIES: Tinnitus, Hearing loss, Vertigo, Nasal discharge, Oral lesions, Throat pain, Hoarseness, Ear Pain, Running Nose, Epistaxis, Sinus Pain, Toothache, Odynophagia Respiratory: DENIES: Apneas, Cough, Snoring, Wheezing, Hemoptysis, Sputum production, Shortness of breath Cardiovascular: COMPLAINS OF: Chest pain, DENIES: Palpitations, Syncope, Dyspnea on Exertion, PND, Lower Extremity Edema, Orthopnea, Claudication Gastrointestinal: COMPLAINS OF: Abdominal pain, DENIES: Black stools, Bloody stools, Constipation, Diarrhea, Nausea, Vomiting, Difficulty Swallowing, Anorexia Genitourinary: DENIES: Abnormal vaginal bleeding, Dysmenorrhea, Dyspareunia, Sexual dysfunction, Urinary frequency, Urinary incontinence, Urgency, Hematuria , Dysuria, Nocturia, Vaginal discharge Musculoskeletal: DENIES: Joint pain, Muscle aches, Stiffness, Joint Swelling, Back pain, Neck pain Integumentary: DENIES: Abnormal pigmentation, Pruritus, Rash, Nail changes, Breast masses, Breast skin changes, Nipple discharge Hematologic/lymphatic: DENIES: Bruising, Lymphadenopathy Immunologic/allergic: DENIES: Eczema, Urticaria Neurologic: DENIES: Abnormal gait, Headache, Localized weakness, Paresthesias, Seizures, Speech Problems, Tremor, Poor Balance Psychiatric: DENIES: Anxiety, Confusion, Mood changes, Depression, Hallucinations, Agitation, Suicidal Ideation, Homicidal Ideation, Delusions Past Family Social History Allergies: Coded Allergies: No Known Allergies (Verified Allergy, Unknown, 02/18/18) Past Medical History Denies Past Surgical History IUD placement Reported Medications Reported Meds & Active Scripts Active No Active Prescriptions or Reported Medications Active Ordered Medications Current Medications Medications (Trade) Dose Ordered Sig/Rigo Route PRN Reason Start Time Stop Time Status Last Admin Dose Admin Sodium Chloride (NS Flush) 2 ml UNSCH PRN IV FLUSH FLUSH AFTER USING IV ACCESS 02/18/18 11:00 Lactated Ringer's 1,000 ml @ 150 mls/hr Q6H40M IV 02/18/18 17:30 02/18/18 18:06 Piperacillin Sod/ Tazobactam Sod 100 ml @ 200 mls/hr Q6H IV 02/18/18 18:00 02/18/18 18:17 Fluconazole/ Sodium Chloride 100 ml @ 100 mls/hr Q24H IV 02/18/18 17:00 02/18/18 18:33 Potassium Chloride 100 ml @ 50 mls/hr Q2H PRN IV For Potassium 2.8 - 3.2 mEq/L 02/18/18 17:30 Potassium Chloride 100 ml @ 50 mls/hr Q2H PRN IV For Potassium 2.8 - 3.2 mEq/L 02/18/18 17:30 Potassium Bicarb/ Potassium Chloride (K-Lyte Cl Eff) 50 meq UNSCH PRN PO For Potassium 3.3 - 3.5 mEq/L 02/18/18 17:30 Potassium Chloride 100 ml @ 25 mls/hr UNSCH PRN IV For Potassium 3.3 - 3.5 mEq/L 02/18/18 17:30 Potassium Chloride 100 ml @ 50 mls/hr Q2H PRN IV For Potassium 3.3 - 3.5 mEq/L 02/18/18 17:30 Magnesium Sulfate 4 gm/Sodium Chloride 100 ml @ 50 mls/hr UNSCH PRN IV For Magnesium 0.9 - 1.1 mg/dL 02/18/18 17:30 Magnesium Oxide (Mag-Ox) 800 mg UNSCH PRN PO For Magnesium 1.2 - 1.6 mg/dL 02/18/18 17:30 Magnesium Sulfate 2 gm/Sodium Chloride 100 ml @ 50 mls/hr UNSCH PRN IV For Magnesium 1.2 - 1.6 mg/dL 02/18/18 17:30 Potassium Phosphate (K-Phos) 2,000 mg Q4H PRN PO For Phosphorus < 2.5 mg/dL 02/18/18 17:30 Sodium Phosphate 30 mmol/Sodium Chloride 250 ml @ 42 mls/hr UNSCH PRN IV For Phosphorus < 2.5 mg/dL 02/18/18 17:30 Potassium Phosphate (K-Phos) 2,000 mg UNSCH PRN PO/TUBE SEE LABEL COMMENTS 02/18/18 17:30 Potassium Phosphate 30 mmol/ Sodium Chloride 260 ml @ 42 mls/hr UNSCH PRN IV SEE LABEL COMMENTS 02/18/18 17:30 Dextrose (D50w (Vial) Inj) 25 ml UNSCH PRN IV PUSH HYPOGLYCEMIA-SEE COMMENTS 02/18/18 17:30 Insulin Human Regular (NovoLIN R SUPPLEMENTAL SCALE) 1 Q6HR SQ 02/18/18 18:00 Labetalol HCl (Trandate Inj) 20 mg Q15M PRN IV PUSH sbp > 160 02/18/18 17:30 Hydralazine HCl (Apresoline Inj) 10 mg Q30M PRN IV PUSH sbp > 160 02/18/18 17:30 Pantoprazole Sodium (Protonix Inj) 40 mg Q12HR IV PUSH 02/18/18 21:00 02/18/18 21:16 Ondansetron HCl (Zofran Inj) 8 mg Q6H PRN IV PUSH NAUSEA OR VOMITING 02/18/18 17:30 02/18/18 18:32 Prochlorperazine (Compazine Supp) 25 mg Q12H PRN RECTAL NAUSEA OR VOMITING 02/18/18 17:30 Albuterol/ Ipratropium (Duoneb Neb) 1 ampule Q2HR NEB PRN INH WHEEZING 02/18/18 17:30 Miscellaneous Information 1 Q361D XX 02/18/18 17:30 02/18/18 19:00 Chlorhexidine Gluconate (Chlorhexidine 2% Cloth) 3 pack Taper DAILY@04 TOP 02/19/18 04:00 02/15/19 03:59 Chlorhexidine Gluconate (Chlorhexidine 2% Cloth) 3 pack UNSCH PRN TOP HYGIENIC CARE 02/18/18 17:30 Family History No family history significant of cancer Social History Denies ETOH Denies smoking Occasional medical marijuana use Physical Exam Vital Signs Vital Signs Date Time Temp Pulse Resp B/P (MAP) Pulse Ox O2 Delivery O2 Flow Rate FiO2 02/18/18 16:45 97.7 71 18 135/81 (99) 96 02/18/18 16:45 71 02/18/18 16:30 97.8 78 16 118/77 (91) 99 02/18/18 15:00 97.8 56 17 134/62 (86) 98 Room Air 02/18/18 15:00 18 02/18/18 15:00 18 02/18/18 14:33 60 18 122/68 (86) 99 Nasal Cannula 02/18/18 13:35 58 17 127/79 (95) 98 Nasal Cannula 02/18/18 12:15 58 15 129/71 (90) 98 Nasal Cannula 2.00 02/18/18 11:30 68 16 134/82 (99) 98 Nasal Cannula 2.00 02/18/18 11:24 99 Room Air 02/18/18 10:55 77 19 138/88 (105) 99 Room Air 02/18/18 09:58 98.2 101 18 135/92 (106) 96 Physical Exam GENERAL: Well-nourished, well-developed patient. SKIN: Warm and dry. HEAD: Normocephalic. EYES: No scleral icterus. No injection or drainage. NECK: Supple, trachea midline. No JVD or lymphadenopathy. CARDIOVASCULAR: Regular rate and rhythm without murmurs, gallops, or rubs. RESPIRATORY: Breath sounds equal bilaterally. No accessory muscle use. GASTROINTESTINAL: Abdomen soft, non-tender, nondistended. MUSCULOSKELETAL: No cyanosis, or edema. BACK: Nontender without obvious deformity. NEURO EXAM: GCS: 15 Mental Status: The patient is alert and oriented to person, place, and time with normal speech. Cranial Nerves: Visual acuity intact bilaterally. Visual kapoor normal in all quadrants. Pupils are round, reactive to light. Extraocular movements are intact without ptosis. Hearing is normal bilaterally. Voice is normal. Tongue protrudes midline and moves symmetrically. Reflexes: Biceps, patellar, and Achilles are 2/4 bilaterally. No clonus. Sensation: Sensation is intact bilaterally to pain and light touch. Two-point discrimination is intact. Motor: Good muscle tone. Strength is 5/5 bilaterally. Laboratory Laboratory Tests Test 02/18/18 11:15 White Blood Count 23.8 Red Blood Count 5.46 Hemoglobin 13.8 Hematocrit 41.2 Mean Corpuscular Volume 75.3 Mean Corpuscular Hemoglobin 25.2 Mean Corpuscular Hemoglobin Concent 33.5 Red Cell Distribution Width 17.8 Platelet Count 492 Mean Platelet Volume 9.8 Neutrophils (%) (Auto) 88.1 Lymphocytes (%) (Auto) 6.1 Monocytes (%) (Auto) 5.6 Eosinophils (%) (Auto) 0.0 Basophils (%) (Auto) 0.2 Neutrophils # (Auto) 21.0 Lymphocytes # (Auto) 1.5 Monocytes # (Auto) 1.3 Eosinophils # (Auto) 0.0 Basophils # (Auto) 0.0 CBC Comment DIFF FINAL Differential Comment Blood Urea Nitrogen 41 Creatinine 1.51 Random Glucose 134 Total Protein 10.7 Albumin 5.5 Calcium Level 9.5 Alkaline Phosphatase 83 Aspartate Amino Transf (AST/SGOT) 28 Alanine Aminotransferase (ALT/SGPT) 51 Total Bilirubin 0.8 Sodium Level 137 Potassium Level 3.1 Chloride Level 98 Carbon Dioxide Level 21.3 Anion Gap 18 Estimat Glomerular Filtration Rate 40 Lactic Acid Level 1.8 Lipase 118 Date/Time Source Procedure Growth Status 02/18/18 18:17 Blood Peripheral Aerobic Blood Culture Pending Received 02/18/18 18:17 Blood Peripheral Anaerobic Blood Culture Pending Received Result Diagram: 02/18/18 1115 02/18/18 1115 Caprini VTE Risk Assessment Caprini VTE Risk Assessment: Mod/High Risk (score >= 2) Caprini Risk Assessment Model Point Value = 1 Point Value = 2 Point Value = 3 Point Value = 5 Age 41-60 Minor surgery BMI > 25 kg/m2 Swollen legs Varicose veins or History of unexplained or recurrent spontaneous Oral contraceptives or hormone replacement Sepsis (< 1 month) Serious lung disease, including pneumonia (< 1 month) Abnormal pulmonary function Acute myocardial infarction Congestive heart failure (< 1 month) History of inflammatory bowel disease Medical patient at bed rest Age 61-74 Arthroscopic surgery Major open surgery (> 45 min) Laparoscopic surgery (> 45 min) Malignancy Confined to bed (> 72 hours) Immobilizing plaster cast Central venous access Age >= 75 History of VTE Family history of VTE Factor V Leiden Prothrombin 22004O Lupus anticoagulant Anticardiolipin antibodies Elevated serum homocysteine Heparin-induced thrombocytopenia Other congenital or acquired thrombophilia Stroke (< 1 month) Elective arthroplasty Hip, pelvis, or leg fracture Acute spinal cord injury (< 1 month) Prophylaxis Regimen Total Risk Factor Score Risk Level Prophylaxis Regimen 0-1 Low Early ambulation 2 Moderate Order ONE of the following: *Sequential Compression Device (SCD) *Heparin 5000 units SQ BID 3-4 Higher Order ONE of the following medications: *Heparin 5000 units SQ TID *Enoxaparin/Lovenox 40 mg SQ daily (WT < 150 kg, CrCl > 30 mL/min) *Enoxaparin/Lovenox 30 mg SQ daily (WT < 150 kg, CrCl > 10-29 mL/min) *Enoxaparin/Lovenox 30 mg SQ BID (WT < 150 kg, CrCl > 30 mL/min) AND/OR *Sequential Compression Device (SCD) 5 or more Highest Order ONE of the following medications: *Heparin 5000 units SQ TID (Preferred with Epidurals) *Enoxaparin/Lovenox 40 mg SQ daily (WT < 150 kg, CrCl > 30 mL/min) *Enoxaparin/Lovenox 30 mg SQ daily (WT < 150 kg, CrCl > 10-29 mL/min) *Enoxaparin/Lovenox 30 mg SQ BID (WT < 150 kg, CrCl > 30 mL/min) AND *Sequential Compression Device (SCD) Assessment and Plan Assessment and Plan Pneumomediastinum - Barium swallow study negative for esophageal perforation - Spontaneous ??? - CT surgery evaluation pending - Pain control and supportive care - Repeat CXR a.m. Abdominal pain - diffuse nonspecific - chronic constipation - CT abdomen and pelvis -negative for an acute process or free air - Gastroenterology consultation appreciated Acute kidney injury - Dehydration - IV fluids resuscitation - Monitor urine output and electrolytes with replacement per ICU protocol UTI - Culture pending - Broad-spectrum antibiotics empirically - De-escalate per sensitivity DVT GI prophylaxis - Teds SCDs - Early aggressive mobilization - Protonix Critical Care: The total critical care time was 35 minutes. Time to perform other separately billable procedures was not included in the critical care time. Louis Stacy MD Feb 18, 2018 19:31
[2018-02-18] MEDS: PANTOPRAZOLE SODIUM 40 MG VIAL IV PUSH SCH (21:16)
[2018-02-18 23:26] LABS: BACTERIA, URINE OCC /hpf; BILIRUBIN, URINE NEG (NEG); BLOOD, URINE MOD (NEG); GLUCOSE,URINE NEG (NEG); HYALINE CAST, URINE 15 /lpf (RARE); KETONE, URINE TRACE mg/dL (NEG); NITRITE,URINE NEG (NEG); SQUAMOUS EPITHELIAL CELL URINE 25 /hpf (0-5); TRANSITIONAL EPI CELLS, URINE 1 /hpf; URINE COLOR YELLOW (YELLW/STRAW); URINE LEUKOCYTE ESTERASE LARGE (NEG)
[2018-02-19] VITALS (10 sets, daily range): BP systolic 93–136; BP diastolic 54–76; PULSE 37–83; RESP 16–24; TEMP 97.9–98.7; O2SAT 92–98
[2018-02-19] MEDS ORDERED: ACETAMINOPHEN 1000 MG/100 ML 100 ML IV PRN (00:30)
[2018-02-19] MEDS: PIPERACIL-TAZO 4.5 GM PREMIX 100 ML IV SCH ×5 (00:43→23:56)
[2018-02-19] MEDS: LACTATED RINGER'S 1000 ML INJ 1,000 ML IV SCH ×3 (00:44→12:40)
[2018-02-19] MEDS: CHLORHEXIDINE GLUCONATE 2 % 1 PACK (2 CLOTHS) TOP SCH (04:00)
[2018-02-19] MEDS: ONDANSETRON HCL 4 MG/2 ML VIAL IV PUSH PRN ×2 (05:49→19:41)
[2018-02-19] MEDS: INSULIN NovoLIN REGULAR SUPPLEMENTAL SCALE SQ SCH ×4 (06:00→17:21)
[2018-02-19] MEDS: PANTOPRAZOLE SODIUM 40 MG VIAL IV PUSH SCH ×2 (08:09→20:33)
[2018-02-19] MEDS ORDERED: PROMETHAZINE INJ 25 MG/ML VIAL IM PRN (08:45)
[2018-02-19] MEDS: HYDROmorphone HCL PF 2 MG/ML VIAL IV PUSH PRN ×2 (11:50→19:47)
[2018-02-19 12:46] LABS: HEMATOCRIT 29.7 % (35.0-46.0); HEMOGLOBIN 10.2 GM/DL (11.6-15.3); MEAN CELL VOLUME 75.9 FL (80.0-100.0); MEAN CORPUSCULAR HEMOGLOBIN 26.1 PG (27.0-34.0); MEAN CORPUSCULAR HGB CONC 34.4 % (32.0-36.0); MEAN PLATELET VOLUME 9.8 FL (7.0-11.0); PLATELET COUNT 282 TH/MM3 (150-450); RED BLOOD COUNT 3.92 MIL/MM3 (4.00-5.30); RED CELL DISTRIBUTION WIDTH 17.3 % (11.6-17.2); WHITE BLOOD COUNT 10.6 TH/MM3 (4.0-11.0)
[2018-02-19 13:13] LABS: BICARBONATE 29.2 MEQ/L (21.0-32.0); CALCIUM 8.1 MG/DL (8.5-10.1); CREATININE 0.65 MG/DL (0.50-1.00)
[2018-02-19] MEDS: POTASSIUM CHLOR 20 MEQ PREMIX 100 ML IV SCH ×4 (14:00→18:37)
[2018-02-19] MEDS ORDERED: POTASSIUM CHLORIDE 20 MEQ CONTROLLED RELEASE TAB PO ONE (16:00)
--- NOTE | 2018-02-19 17:35 | HHI.CCPN ---
Subjective Remarks/Hospital Course Hospital Course: 28-year-old female presents for evaluation of complains of abdominal pain for about 2 days. It is generalized constant and severe. The patient finds that taking long showers helps. She reports chest pain started last night. No vomiting or fever. No diarrhea. No urinary complaint. No similar prior episode. There is no pleuritic chest pain or cough. CTA done in the emergency department revealed extensive pneumomediastinum and subcutaneous emphysema. Air is seen to surround the thecal sac and extends into the retrocrural region. Cardiothoracic surgery and instructional manager has also been consulted. Subjective: 02/19: clinically improving. wretching and nausea improved. still with chest pain. Gastrografin swallow negative for overt leak. cultures NGTD. Objective Vital Signs Date Time Temp Pulse Resp B/P (MAP) Pulse Ox O2 Delivery O2 Flow Rate FiO2 02/19/18 16:00 98.2 45 18 120/61 (80) 95 02/19/18 07:47 Nasal Cannula 1.00 02/18/18 20:00 21 Result Diagram: 02/19/18 1200 02/19/18 1200 Objective Remarks GENERAL: Well-nourished, well-developed patient. SKIN: Warm and dry. HEAD: Normocephalic. EYES: No scleral icterus. No injection or drainage. NECK: Supple, trachea midline. No JVD or lymphadenopathy. CARDIOVASCULAR: Regular rate and rhythm without murmurs, gallops, or rubs. RESPIRATORY: Breath sounds equal bilaterally. No accessory muscle use. GASTROINTESTINAL: Abdomen soft, non-tender, nondistended. MUSCULOSKELETAL: No cyanosis, or edema. BACK: Nontender without obvious deformity. NEURO EXAM: GCS: 15 Mental Status: The patient is alert and oriented to person, place, and time with normal speech. Cranial Nerves: Visual acuity intact bilaterally. Visual kapoor normal in all quadrants. Pupils are round, reactive to light. Extraocular movements are intact without ptosis. Hearing is normal bilaterally. Voice is normal. Tongue protrudes midline and moves symmetrically. Reflexes: Biceps, patellar, and Achilles are 2/4 bilaterally. No clonus. Sensation: Sensation is intact bilaterally to pain and light touch. Two-point discrimination is intact. Motor: Good muscle tone. Strength is 5/5 bilaterally. A/P Assessment and Plan Assessment: 28yF with likely past history of cyclical vomiting syndrome and now Boerhaave syndrome. Clinically stable. can transfer out of ICU. GI to guide diet management. continue abx until cultures negative x 48h. Pneumomediastinum - Barium swallow study negative for esophageal perforation - CT surgery evaluation pending - Pain control and supportive care - Repeat CXR a.m. Abdominal pain - diffuse nonspecific - chronic constipation - CT abdomen and pelvis -negative for an acute process or free air - Gastroenterology consultation appreciated Acute kidney injury - Dehydration - IV fluids resuscitation - Monitor urine output and electrolytes with replacement per ICU protocol UTI - Culture pending - Broad-spectrum antibiotics empirically - De-escalate per sensitivity DVT GI prophylaxis - Teds SCDs - Early aggressive mobilization - Protonix Dispo: transfer out of ICU. consult hospitalist service. Aakash Lyles MD Feb 19, 2018 17:35
[2018-02-19] MEDS: FLUCONAZOLE 200 MG PREMIX BAG 100 ML IV SCH (17:56)
[2018-02-19] MEDS: SODIUM CHLORIDE 0.9% FLUSH 10 ML FLUSH IV FLUSH PRN (20:36)
--- NOTE | 2018-02-19 22:32 | HHI.GIFU ---
GI Follow-up Note Consult Follow-up Subjective: Patient laying in bed comfortably, no new complaint, feeling better.No nausea, vomiting , tolerated ice chips. Objective: PHYSICAL EXAMINATION: Vitals signs stable No fever HEENT: Pupils round and reactive to light; normocephalic; atraumatic; no jaundice. Throat is clear. NECK: Neck is supple, no JVD, no lymphadenopathy, wheezing CHEST: Chest is clear to auscultation and percussion. CARDIAC: Regular rate and rhythm with no murmur gallop or rubs. ABDOMEN: Soft, nondistended, nontender; no hepatosplenomegaly; bowel sounds are present in all four quadrants. EXTREMITIES: No clubbing, cyanosis, or edema. SKIN: Normal; no rash; no jaundice. LEATHER STITCHER: No focal deficits; alert and oriented times three. Available Data (labs, X- Rays, Procedues) : ASSESSMENT/PLAN: pneumomediastinum, suspect possible sealed esophageal perforation due to vomiting recurrent nausea, vomiting possible cannabinoid hyperemesis syndrome ugi series-no leak Recommendations clear liquid diet advance diet as tolerated ppi egd in few days once pneumomediastinum resolved await thoracic surgery eval urine toxicology It was a pleasure seeing Patti Carrington. Thank you for this consult. Entered by: Aparna Nino MD Feb 19, 2018 22:32
[2018-02-20] VITALS (7 sets, daily range): BP systolic 128–144; BP diastolic 69–90; PULSE 37–52; RESP 16–18; TEMP 97.9–99.1; O2SAT 92–98
[2018-02-20] MEDS: LACTATED RINGER'S 1000 ML INJ 1,000 ML IV SCH ×4 (00:02→16:10)
[2018-02-20] MEDS: HYDROmorphone HCL PF 2 MG/ML VIAL IV PUSH PRN ×2 (03:42→09:30)
[2018-02-20] MEDS: ONDANSETRON HCL 4 MG/2 ML VIAL IV PUSH PRN (03:48)
[2018-02-20] MEDS: CHLORHEXIDINE GLUCONATE 2 % 1 PACK (2 CLOTHS) TOP SCH (04:00)
[2018-02-20 05:42] LABS: CALCIUM 8.2 MG/DL (8.5-10.1); CREATININE 0.78 MG/DL (0.50-1.00)
[2018-02-20 05:51] LABS: HEMATOCRIT 29.9 % (35.0-46.0); HEMOGLOBIN 9.8 GM/DL (11.6-15.3); MEAN CORPUSCULAR HEMOGLOBIN 25.1 PG (27.0-34.0); MEAN CORPUSCULAR HGB CONC 32.6 % (32.0-36.0); MEAN PLATELET VOLUME 10.1 FL (7.0-11.0); PLATELET COUNT 258 TH/MM3 (150-450); RED BLOOD COUNT 3.89 MIL/MM3 (4.00-5.30); RED CELL DISTRIBUTION WIDTH 17.4 % (11.6-17.2); WHITE BLOOD COUNT 9.6 TH/MM3 (4.0-11.0)
[2018-02-20] MEDS: INSULIN NovoLIN REGULAR SUPPLEMENTAL SCALE SQ SCH ×5 (06:00→22:59)
[2018-02-20] MEDS: PIPERACIL-TAZO 4.5 GM PREMIX 100 ML IV SCH ×4 (06:25→22:59)
[2018-02-20] MEDS: PANTOPRAZOLE SODIUM 40 MG VIAL IV PUSH SCH ×2 (09:27→21:03)
[2018-02-20] MEDS ORDERED: ACETAMINOPHEN 325 MG TAB PO PRN (14:00)
--- NOTE | 2018-02-20 15:23 | HHI.PR ---
Subjective Remarks Nursing denies any deterioration since last night. Patient herself is reporting still some persistent chest pain. Says that she has been able to tolerate some clear liquids yesterday. However she is requiring the IV Zofran quite frequently. Objective Vital Signs Date Time Temp Pulse Resp B/P (MAP) Pulse Ox O2 Delivery O2 Flow Rate FiO2 02/20/18 08:00 98.1 49 18 144/90 (108) 94 02/20/18 04:00 97.9 52 16 131/77 (95) 95 02/20/18 00:00 99.1 46 16 128/70 (89) 92 02/19/18 23:53 18 02/19/18 20:00 98.5 52 16 136/76 (96) 96 02/19/18 16:00 98.2 45 18 120/61 (80) 95 I/O 02/19/18 02/19/18 02/19/18 02/20/18 02/20/18 02/20/18 07:00 15:00 23:00 07:00 15:00 23:00 Intake Total 970 ml 480 ml Output Total 200 ml Balance 970 ml 280 ml Intake Oral 720 ml 480 ml IV Total 250 ml Output Urine Total 200 ml # Voids 3 # Bowel Movements 4 1 Result Diagram: 02/20/18 0440 02/20/18 0440 Objective Remarks Clear lungs bilaterally, heart sounds demonstrate very minimal crepitus No acute distress, unlabored breathing, abdomen soft, nontender A/P Assessment and Plan Pneumomediastinum -Cardiothoracic surgery consult has been placed, tolerating on room air, etiology unclear at this time, wonder if this could be from repetitive vomiting Nausea/vomiting -Improved since admission, Discussed with GI that the patient still having persistent nausea, will change IV to ODT Zofran, wonder if this is from THC use which the patient does endorse. Anticipate EGD in a.m. DEMI - resolved Urine culture neg. Rio Guzman MD Feb 20, 2018 15:23
--- NOTE | 2018-02-20 15:38 | HHI.GIFU ---
Subjective Remarks Resting in the bed No vomiting today Tolerating clear liquids Temp high 99.1 today Loose stools continue 4- 5 times today (Elissa Mc) Objective Vitals I&O Vital Signs Date Time Temp Pulse Resp B/P (MAP) Pulse Ox O2 Delivery O2 Flow Rate FiO2 02/20/18 08:00 98.1 49 18 144/90 (108) 94 02/20/18 04:00 97.9 52 16 131/77 (95) 95 02/20/18 00:00 99.1 46 16 128/70 (89) 92 02/19/18 23:53 18 02/19/18 20:00 98.5 52 16 136/76 (96) 96 02/19/18 16:00 98.2 45 18 120/61 (80) 95 I/O 02/19/18 02/19/18 02/19/18 02/20/18 02/20/18 02/20/18 07:00 15:00 23:00 07:00 15:00 23:00 Intake Total 970 ml 480 ml Output Total 200 ml Balance 970 ml 280 ml Intake Oral 720 ml 480 ml IV Total 250 ml Output Urine Total 200 ml # Voids 3 # Bowel Movements 4 1 Laboratory Laboratory Tests Test 02/20/18 04:40 White Blood Count 9.6 Red Blood Count 3.89 Hemoglobin 9.8 Hematocrit 29.9 Mean Corpuscular Volume 77.0 Mean Corpuscular Hemoglobin 25.1 Mean Corpuscular Hemoglobin Concent 32.6 Red Cell Distribution Width 17.4 Platelet Count 258 Mean Platelet Volume 10.1 Blood Urea Nitrogen 14 Creatinine 0.78 Random Glucose 76 Calcium Level 8.2 Sodium Level 142 Potassium Level 3.4 Chloride Level 107 Carbon Dioxide Level 26.0 Anion Gap 9 Estimat Glomerular Filtration Rate 87 Date/Time Source Procedure Growth Status 02/18/18 18:17 Blood Peripheral Aerobic Blood Culture - Preliminary NO GROWTH IN 2 DAYS Resulted 02/18/18 18:17 Blood Peripheral Anaerobic Blood Culture - Preliminary NO GROWTH IN 2 DAYS Resulted 02/18/18 21:00 Urine Clean Catch Urine Culture - Final NO GROWTH IN 48 HOURS. Complete Imaging Last Impressions CT Angiography 02/18/18 1144 Signed Impressions: Service Date/Time: Sunday, February 18, 2018 12:25 - CONCLUSION: 1. Extensive pneumomediastinum and subcutaneous emphysema. Air is seen to surround the thecal sac and extends into the retrocrural region. 2. No pulmonary embolus. David Dominguez MD Abdomen/Pelvis CT 02/18/18 1057 Signed Impressions: Service Date/Time: Sunday, February 18, 2018 12:25 - CONCLUSION: 1. Pneumomediastinum of indeterminate etiology. 2. No free intraperitoneal air. Gian Mendez MD Chest X-Ray 02/18/18 1054 Signed Impressions: Service Date/Time: Sunday, February 18, 2018 11:00 - CONCLUSION: Subcutaneous emphysema within the right chest wall and right supraclavicular region there no definite pneumothorax is identified on the right on the plain film. CT of the chest would be more sensitive to rule out subtle pneumothorax in this patient if clinically indicated. Gian Mendez MD Upper GI/Barium Swallow X-Ray 02/18/18 0000 Signed Impressions: Service Date/Time: Sunday, February 18, 2018 14:11 - CONCLUSION: Unremarkable examination of the esophagus. No esophageal tear or extravasation was seen. David Dominguez MD Physical Exam HEENT: Pupils round and reactive to light; normocephalic; atraumatic; oral cavity clean, speech is clear NECK: Neck supple, no obvious edema CHEST: Breath sounds regular without shortness, mild diminished CARDIAC: Regular rate and rhythm ABDOMEN: Soft, nondistended, nontender; no hepatosplenomegaly; bowel sounds are present in all four quadrants. EXTREMITIES: No edema. SKIN: Normal; no rash; no jaundice. GRADES 9 12 TUTOR: No focal deficits; alert and oriented times three. (Elissa Mc) Assessment and Plan Plan Assessment: - Pneumomediastinum- Pt admits to chest pain that began yesterday. Denies nausea and vomiting, however admits to dry heaving yesterday, denies forceful retching. Denies history of EGD. Cardiothoracic surgery consult has already been placed. Barium swallow done, results pending. Pt on RA, in no apparent distress during my exam. NC at bedside is on but she is not wearing it - Abdominal pain- diffuse- states for the past three days- also complaining of chronic constipation- last BM was Tuesday CT abdomen and pelvis - No free intraperitoneal air. Pt has never had colonoscopy 02/20/18 upper GI series barium swallow on 02/18/18 unremarkable exam of the esophagus no esophageal tear seen. Nausea improving, no vomiting today. Hemoglobin stable at 9.8. Tolerating clear liquids. Cardiothoracic surgery consult pending Plan: Consent for EGD in a. Cardiothoracic surgery pending Dulcolax supp if needed Further recommendations based on clinical findings and course Pt has been seen and examined by myself and Dr. Silva and this note is written on his behalf (Elissa Mc) Physician Comments Patient seen and examined Agree with above Continue with current supportive care Monitor lab Plan for an EGD tomorrow (Amarjit Silva MD) Elissa Mc Feb 20, 2018 15:38 Amarjit Silva MD Feb 20, 2018 23:33
--- NOTE | 2018-02-20 15:48 | MB ---
cc: Rekha Thomas MD DATE: 02/20/2018 HISTORY OF PRESENT ILLNESS: A 28-year-old female presented to the emergency room with abdominal pain for 2 days. She was also exposed to some ill children. 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 She had been vomiting, actually retching for about 3 days and she noticed some chest discomfort the night before. They did a CTA of the chest which showed no evidence of a pulmonary emboli; however, she did have some extensive pneumomediastinum and subcutaneous emphysema. There was air seen around the thecal sac and extended into the retrocrural region. They did notify Dr. Thomas over the weekend, who did evaluate the CT scan and there was no recommendation for any CV surgery. Gastrografin swallow showed no esophageal tear or extravasation. CT of the abdomen showed no free air and the CTA was as above. PAST MEDICAL HISTORY: The patient has no past medical history. PAST SURGICAL HISTORY: IUD placement. ALLERGIES: NO KNOWN ALLERGIES. MEDICATIONS: She takes no active medications. When she was admitted; however, her white cell count was 23,000. She was placed on Zosyn and Diflucan prophylactically. Her white cell count is down to 9.6. She is afebrile. She has been seen and evaluated by GI. At this time, she is feeling much better. She has been started on a clear liquid diet. They did an upper GI series which was negative. Per the note from GI, possible EGD in 2-3 days depending upon the clinical course. REVIEW OF SYSTEMS: As above in HPI, otherwise 12 systems is unremarkable. PHYSICAL EXAMINATION: VITAL SIGNS: Blood pressure 140/90, heart rate of 50, afebrile. GENERAL: Awake, alert, no acute distress. HEENT: Head is normocephalic, atraumatic. Pupils equal and reactive. Oral mucosa pink, moist. NECK: Supple. No JVD. CARDIOVASCULAR: Heart sounds S1, S2. Regular rate and rhythm. No rubs, murmurs or gallops. LUNGS: Clear to auscultation. No wheezes, rales or rhonchi. ABDOMEN: Soft, nontender. No masses or organomegaly. EXTREMITIES: No cyanosis, clubbing, or edema. LABORATORY DATA: Shows hemoglobin 9.8, hematocrit of 29. White cell count of 9.6, platelet count of 258. Sodium 142, potassium 3.4, BUN of 14, creatinine 0.78. Urinalysis did show some leukocyte esterase. Urine culture no growth in 48 hours. Blood cultures negative. RADIOLOGICAL EXAMS: As above. IMPRESSION/PLAN: This is a 28-year-old female who had recent type of gastroenteritis with significant vomiting and retching for a 3 day period that resulted in a probable pneumomediastinum. At this time, this is stable. There is no surgical intervention at this time. We will monitor the patient closely. Once she tolerates full liquids then advance as tolerated she can be followed with GI. Dictated by: RANDY Correia MD LORENE King/TL/rr , 02:40 PM , 03:01 PM
[2018-02-20] MEDS ORDERED: LIDOCAINE VISCOUS 2% SOLN 15 ML UDC SWISH-SWAL ONE (16:00)
[2018-02-20] MEDS: ACETAMINOPHEN/HYDROcodone 325 MG/7.5 MG TAB PO PRN ×2 (16:13→22:57)
[2018-02-20] MEDS: FLUCONAZOLE 200 MG PREMIX BAG 100 ML IV SCH (16:13)
[2018-02-21] VITALS (8 sets, daily range): BP systolic 134–161; BP diastolic 61–80; PULSE 35–54; RESP 17–19; TEMP 98.2–98.9; O2SAT 93–97
[2018-02-21] MEDS: LACTATED RINGER'S 1000 ML INJ 1,000 ML IV SCH ×4 (02:09→17:01)
[2018-02-21] MEDS ORDERED: LACTATED RINGER'S 1000 ML IV PRN (03:30)
[2018-02-21] MEDS ORDERED: POVIDONE IODINE 5% (ANTISEPSIS KIT) 4 APPLICATIONS EACH NARE PRN (03:30)
[2018-02-21] MEDS ORDERED: CHLORHEXIDINE GLUCONATE 2 % 1 PACK (2 CLOTHS) TOPICAL PRN (03:30)
[2018-02-21] MEDS: CHLORHEXIDINE GLUCONATE 2 % 1 PACK (2 CLOTHS) TOP SCH (04:00)
[2018-02-21] MEDS: PIPERACIL-TAZO 4.5 GM PREMIX 100 ML IV SCH ×2 (05:12→12:00)
[2018-02-21] MEDS: INSULIN NovoLIN REGULAR SUPPLEMENTAL SCALE SQ SCH ×4 (05:13→23:11)
[2018-02-21 05:25] LABS: HEMATOCRIT 31.1 % (35.0-46.0); HEMOGLOBIN 10.3 GM/DL (11.6-15.3); MEAN CELL VOLUME 75.5 FL (80.0-100.0); MEAN CORPUSCULAR HGB CONC 33.1 % (32.0-36.0); PLATELET COUNT 274 TH/MM3 (150-450); RED BLOOD COUNT 4.12 MIL/MM3 (4.00-5.30); RED CELL DISTRIBUTION WIDTH 16.9 % (11.6-17.2); WHITE BLOOD COUNT 8.2 TH/MM3 (4.0-11.0)
[2018-02-21 06:12] LABS: BICARBONATE 28.2 MEQ/L (21.0-32.0); CALCIUM 7.9 MG/DL (8.5-10.1); CREATININE 0.76 MG/DL (0.50-1.00)
[2018-02-21] MEDS: POTASSIUM CHLOR 20 MEQ PREMIX 100 ML IV SCH ×2 (06:34→08:30)
[2018-02-21] MEDS: ONDANSETRON ODT 4 MG TAB PO PRN (08:02)
[2018-02-21] MEDS: PANTOPRAZOLE SODIUM 40 MG VIAL IV PUSH SCH ×2 (08:13→20:15)
[2018-02-21] MEDS: ACETAMINOPHEN/HYDROcodone 325 MG/7.5 MG TAB PO PRN ×2 (08:49→16:57)
[2018-02-21] MEDS ORDERED: LIDOCAINE HCL 1% PF 5 ML SYRINGE OTHER ONE (12:00)
[2018-02-21] MEDS ORDERED: PROPOFOL 200 MG/20 ML AMP IV ONE (12:00)
[2018-02-21] MEDS ORDERED: DO NOT ADM ANY ANTICOAGULANT DRUGS PRN (15:04)
[2018-02-21] MEDS ORDERED: MORPHINE SULFATE 4 MG/ML INJ ONE (15:22)
--- NOTE | 2018-02-21 15:48 | PD.PROCEDR ---
GI Procedure PROCEDURE PERFORMED EGD with biopsy INDICATION FOR PROCEDURE Abdominal pain PROCEDURE: The procedure, risks and benefits were discussed with Ms. Mckay and informed consent was obtained. Anesthesia sedated her with Diprivan. She was placed in the left lateral decubitus position. EGD: The Pentax videoscope was introduced through the oropharynx and advanced to the second portion of the duodenum under direct visualization. Retroflexion was performed in the stomach. FINDINGS: The esophagus this appeared to be unremarkable and within normal limits The stomach there were 3 small nodules in the gastric body of unclear significance benign looking these were biopsied otherwise the stomach was unremarkable The duodenum this was normal ESTIMATED BLOOD LOSS: None SPECIMENS REMOVED: Gastric biopsy COMPLICATIONS: None IMPRESSION: Gastric nodules Otherwise normal EGD PLAN: Await biopsies Of note after the patient woke up from her procedure she was fine but on her way back to the room she complained of the sudden onset of right sided abdominal pain that worsens with inspiration and as a result a stat CT of the abdomen and pelvis was ordered especially noting that the patient actually presented with a pneumomediastinum Amarjit Silva MD Feb 21, 2018 15:48
--- NOTE | 2018-02-21 15:58 | RADRPT ---
EXAM DATE/TIME: 02/21/2018 15:31 [facility] COMPARISON: No previous studies available for comparison. INDICATIONS : Severe abdominal pain post upper endoscopy ORAL CONTRAST: No oral contrast ingested. RADIATION DOSE: 5.22 CTDIvol (mGy) MEDICAL HISTORY : None SURGICAL HISTORY : None. ENCOUNTER: Initial ACUITY: 1 day PAIN SCALE: 9/10 LOCATION: Right lower quadrant TECHNIQUE: Volumetric scanning of the abdomen and pelvis was performed. Using automated exposure control and ad justment of the mA and/or kV according to patient size, radiation dose was kept as low as reasonably achievable to obtain optimal diagnostic quality images. DICOM format image data is available electro nically for review and comparison. FINDINGS: LOWER LUNGS: The visualized lower lungs are clear. LIVER: Homogeneous density without lesion. There is no dilation of the biliary tree. No calcified gallston es. SPLEEN: Normal size without lesion. PANCREAS: Within normal limits. KIDNEYS: Normal in size and shape. There is no mass, stone, or hydronephrosis. ADRENAL GLANDS: Within normal limits. VASCULAR: There is no aortic aneurysm. BOWEL/MESENTERY: Gaseous distention of the small vessel tract is noted throughout. There is no evidence of free air. T here are no abnormal fluid collections. ABDOMINAL WALL: Within normal limits. RETROPERITONEUM: There is no lymphadenopathy. BLADDER: Markedly distended. REPRODUCTIVE: Within normal limits. Intrauterine device is noted in place. INGUINAL: There is no lymphadenopathy or hernia. MUSCULOSKELETAL: Within normal limits for patient age. CONCLUSION: 1. Markedly distended urinary bladder 2. Air-filled small bowel status post endoscopy. 3. No evidence of free air or abnormal fluid collections. 4. IUD. Roman Holm MD on February 21, 2018 at 15:52 Board Certified Radiologist. This report was verified electronically.
--- NOTE | 2018-02-21 16:55 | HHI.PR ---
Subjective Remarks Nursing denies any deterioration since last night. Patient still having some mild intermittent chest pains but says that the lidocaine swallow did help. She also does report still having watery stools which is not normal for her. She did go down for her EGD but after the procedure she did experience some new onset worsening chest pain. Stat CT scan of the abdomen and pelvis was unremarkable for any acute findings apart for some mild air within the GI tract secondary to endoscopy. Objective Vital Signs Date Time Temp Pulse Resp B/P (MAP) Pulse Ox O2 Delivery O2 Flow Rate FiO2 02/21/18 12:06 37 02/21/18 08:00 98.3 37 17 161/78 (105) 95 02/21/18 04:38 98.2 35 17 159/74 (102) 94 02/21/18 02:08 20 02/21/18 00:00 98.3 44 17 134/61 (85) 93 02/20/18 20:00 98.9 44 16 138/74 (95) 98 02/20/18 19:50 37 I/O 02/20/18 02/20/18 02/20/18 02/21/18 02/21/18 02/21/18 07:00 15:00 23:00 07:00 15:00 23:00 Intake Total 480 ml 1000 ml 920 ml 200 ml 650 ml Output Total 200 ml Balance 280 ml 1000 ml 920 ml 200 ml 650 ml Intake Oral 480 ml 620 ml IV Total 1000 ml 300 ml 200 ml 650 ml Output Urine Total 200 ml # Voids 3 3 # Bowel Movements 1 1 Result Diagram: 02/21/18 0420 02/21/18 0420 Objective Remarks Patient examined before EGD Clear lungs bilaterally, heart sounds demonstrate very minimal crepitus No acute distress, unlabored breathing, abdomen soft, nontender A/P Assessment and Plan Pneumomediastinum -deemed 2/2 retching/vomiting, no surg intervention warranted Nausea -Controlled with Zofran ODT; improved since admission, Discussed with GI that the patient still having persistent nausea, will change IV to ODT Zofran, wonder if this is from THC use which the patient does endorse. - EGD is unremarkable -Stopping antibiotics as there is no signs or symptoms of infection at this time. Diarrhea -Wonder if this is secondary to simple gastroenteritis, obtaining a C. difficile specimen for testing Hypokalemia -We will replace, secondary to diarrhea most likely early ambulation Rio Guzman MD Feb 21, 2018 16:55
[2018-02-21] MEDS: FLUCONAZOLE 200 MG PREMIX BAG 100 ML IV SCH (16:57)
[2018-02-21] MEDS ORDERED: LIDOCAINE VISCOUS 2% SOLN 15 ML UDC SWISH-SWAL PRN (17:00)
[2018-02-21] MEDS ORDERED: POTASSIUM CHLORIDE 10 MEQ CONTROLLED RELEASE TAB PO ONE (17:00)
[2018-02-21] MEDS ORDERED: SIMETHICONE 125 MG CHEWABLE TAB PO PRN (18:00)
[2018-02-21] MEDS: SODIUM CHLORIDE 0.9% FLUSH 10 ML FLUSH IV FLUSH PRN (20:15)
[2018-02-22 00:23] VITALS: BP 118/74; PULSE 51; RESP 18; TEMP 98.9; O2SAT 94
[2018-02-22] MEDS: LACTATED RINGER'S 1000 ML INJ 1,000 ML IV SCH (01:30)
[2018-02-22] MEDS: CHLORHEXIDINE GLUCONATE 2 % 1 PACK (2 CLOTHS) TOP SCH (04:00)
[2018-02-22 04:29] VITALS: BP 143/81; PULSE 45; RESP 17; TEMP 97.8; O2SAT 97
[2018-02-22] MEDS: INSULIN NovoLIN REGULAR SUPPLEMENTAL SCALE SQ SCH ×2 (04:36→12:00)
[2018-02-22 08:00] VITALS: BP 147/80; PULSE 42; PULSE 52; RESP 17; TEMP 98.3; O2SAT 94
[2018-02-22] MEDS ORDERED: POTASSIUM CHLORIDE 10 MEQ CONTROLLED RELEASE TAB PO SCH (09:00)
--- NOTE | 2018-02-22 10:02 | HHI.DCPOC ---
Discharge Care Plan Diagnosis: (1) Gastric nodule (2) Dry heaves (3) Pneumomediastinum Goals to Promote Your Health * To prevent worsening of your condition and complications * To maintain your health at the optimal level Directions to Meet Your Goals Take your medications as prescribed Follow your dietary instruction Follow activity as directed Keep your appointments as scheduled Take your immunizations and boosters as scheduled If your symptoms worsen call your PCP, if no PCP go to Urgent Care Center or Emergency Room Smoking is Dangerous to Your Health. Avoid second hand smoke Call the 24-hour hour crisis hotline for domestic abuse at Rio Guzman MD Feb 22, 2018 10:02
[2018-02-22] MEDS ORDERED: ONDA4TAB7 PO (10:03)
[2018-02-22] MEDS ORDERED: PANT40TA3 PO (10:09)
[2018-02-22] MEDS ORDERED: GAVISUS PO (10:09)
--- NOTE | 2018-02-22 10:13 | HHI.DS ---
Discharge Summary Admission Date Feb 18, 2018 at 13:35 Discharge Date: Feb 22, 2018 Admitting Diagnosis Pneumomediastium (1) Viral gastroenteritis ICD Code: A08.4 - Viral intestinal infection, unspecified (2) Marijuana use ICD Code: F12.90 - Cannabis use, unspecified, uncomplicated (3) Dry heaves ICD Code: R11.10 - Vomiting, unspecified Status: Acute (4) Hypokalemia ICD Code: E87.6 - Hypokalemia Status: Acute (5) Pneumomediastinum ICD Code: J98.2 - Interstitial emphysema Status: Acute (6) Gastric nodule ICD Code: K31.89 - Other diseases of stomach and duodenum Procedures EGD showing gastric nodules Brief History - From Admission 28-year-old female presents for evaluation of complains of abdominal pain for about 2 days. It is generalized constant and severe. The patient finds that taking long showers helps. She reports chest pain started last night. No vomiting or fever. No diarrhea. No urinary complaint. No similar prior episode. There is no pleuritic chest pain or cough. CTA done in the emergency department revealed extensive pneumomediastinum and subcutaneous emphysema. Air is seen to surround the thecal sac and extends into the retrocrural region. Cardiothoracic surgery and surfboard maker has also been consulted. CBC/BMP: 02/21/18 0420 02/21/18 0420 Significant Findings Laboratory Tests Test 02/19/18 12:00 02/20/18 04:40 02/21/18 04:20 02/22/18 09:42 Red Blood Count 3.92 MIL/MM3 (4.00-5.30) 3.89 MIL/MM3 (4.00-5.30) Hemoglobin 10.2 GM/DL (11.6-15.3) 9.8 GM/DL (11.6-15.3) 10.3 GM/DL (11.6-15.3) Hematocrit 29.7 % (35.0-46.0) 29.9 % (35.0-46.0) 31.1 % (35.0-46.0) Mean Corpuscular Volume 75.9 FL (80.0-100.0) 77.0 FL (80.0-100.0) 75.5 FL (80.0-100.0) Mean Corpuscular Hemoglobin 26.1 PG (27.0-34.0) 25.1 PG (27.0-34.0) 25.0 PG (27.0-34.0) Red Cell Distribution Width 17.3 % (11.6-17.2) 17.4 % (11.6-17.2) Calcium Level 8.1 MG/DL (8.5-10.1) 8.2 MG/DL (8.5-10.1) 7.9 MG/DL (8.5-10.1) Potassium Level 2.9 MEQ/L (3.5-5.1) 3.4 MEQ/L (3.5-5.1) 2.9 MEQ/L (3.5-5.1) Estimat Glomerular Filtration Rate 87 ML/MIN (>89) Test 02/22/18 09:50 Imaging Last Impressions Abdomen/Pelvis CT 02/21/18 0000 Signed Impressions: Service Date/Time: Wednesday, February 21, 2018 15:31 - CONCLUSION: 1. Markedly distended urinary bladder 2. Air-filled small bowel status post endoscopy. 3. No evidence of free air or abnormal fluid collections. 4. IUD. Roman Holm MD CT Angiography 02/18/18 1144 Signed Impressions: Service Date/Time: Sunday, February 18, 2018 12:25 - CONCLUSION: 1. Extensive pneumomediastinum and subcutaneous emphysema. Air is seen to surround the thecal sac and extends into the retrocrural region. 2. No pulmonary embolus. David Dominguez MD Chest X-Ray 02/18/18 1054 Signed Impressions: Service Date/Time: Sunday, February 18, 2018 11:00 - CONCLUSION: Subcutaneous emphysema within the right chest wall and right supraclavicular region there no definite pneumothorax is identified on the right on the plain film. CT of the chest would be more sensitive to rule out subtle pneumothorax in this patient if clinically indicated. Gian Mendez MD Upper GI/Barium Swallow X-Ray 02/18/18 0000 Signed Impressions: Service Date/Time: Sunday, February 18, 2018 14:11 - CONCLUSION: Unremarkable examination of the esophagus. No esophageal tear or extravasation was seen. David Dominguez MD PE at Discharge Abdomen soft, nontender, nondistended Patient does not appear to be in any acute distress or jaundice Hospital Course Patient was admitted, started on IV fluids and antibiotics and antiemetics. Cardiothoracic surgery deemed no intervention was necessary for the stable pneumomediastinum. Gastroenterology performed EGD found no acute findings other than grossly benign appearing gastric nodules which were biopsied. Patient eventually was tolerating p.o. intake well with p.o. antiemetics. Patient's diarrhea remained stable and was negative for C. difficile and her potassium was repleted and remained stable. Patient has met maximal benefit from hospitalization and is clinically stable for discharge. Patient was counseled to refrain from any further marijuana use. Pt Condition on Discharge: Stable Discharge Disposition: Discharge Home Discharge Time: <= 30 minutes Discharge Instructions DIET: Follow Instructions for: As Tolerated, No Restrictions Follow up Referrals: Gastroenterology - 2 Weeks with Amarjit Silva MD PCP Follow-up - 1 Week New Medications: Aluminum Hydroxide-Mag Carb Liq (Gaviscon Liq) 95-358 Mg/15 Ml Susp 15-30 ML PO QID PRN for HEARTBURN, #1 BOTTLE 0 Refills Maximum 120 mL/24 hrs. Pantoprazole (Pantoprazole) 40 Mg Tab 40 MG PO DAILY for Reflux, #30 TAB 0 Refills Potassium Chloride Microencaps (Klor-Con M20) 20 Meq Tab 20 MEQ PO DAILY for Electrolyte Replacement, #30 TAB 0 Refills Ondansetron Odt (Ondansetron Odt) 4 Mg Tab 4 MG PO Q6H PRN for nausea, #15 TAB Rio Guzman MD Feb 22, 2018 10:13
[2018-02-22 10:14] LABS: HEMOGLOBIN 11.6 GM/DL (11.6-15.3); MEAN CELL VOLUME 75.7 FL (80.0-100.0); MEAN PLATELET VOLUME 10.1 FL (7.0-11.0); PLATELET COUNT 310 TH/MM3 (150-450); RED BLOOD COUNT 4.63 MIL/MM3 (4.00-5.30); RED CELL DISTRIBUTION WIDTH 16.9 % (11.6-17.2); WHITE BLOOD COUNT 8.3 TH/MM3 (4.0-11.0)
[2018-02-22] MEDS: PANTOPRAZOLE SODIUM 40 MG VIAL IV PUSH SCH (10:18)
[2018-02-22] MEDS: ONDANSETRON ODT 4 MG TAB PO PRN (10:18)
[2018-02-22 11:10] LABS: BICARBONATE 26.6 MEQ/L (21.0-32.0); CALCIUM 8.5 MG/DL (8.5-10.1); CREATININE 0.63 MG/DL (0.50-1.00)
[2018-02-22 12:00] VITALS: BP 137/65; PULSE 46; RESP 17; TEMP 98.2; O2SAT 91
[2018-02-22] MEDS ORDERED: KLOR20TA3 PO (12:05)
[2018-02-22] MEDS ORDERED: LOPERAMIDE HCL 2 MG CAP PO ONE (12:15)
--- NOTE | 2018-02-22 14:43 | HHI.GIFU ---
Subjective Remarks She is resting on side of the bed Plan is to discharge today Denies any nausea vomiting or GI distress (Elissa Mc) Objective Vitals I&O Vital Signs Date Time Temp Pulse Resp B/P (MAP) Pulse Ox O2 Delivery O2 Flow Rate FiO2 02/22/18 12:00 98.2 46 17 137/65 (89) 91 02/22/18 10:58 21 02/22/18 08:00 98.3 52 17 147/80 (102) 94 02/22/18 08:00 42 02/22/18 04:29 97.8 45 17 143/81 (101) 97 02/22/18 00:23 98.9 51 18 118/74 (89) 94 02/21/18 20:20 54 02/21/18 20:00 98.9 54 18 137/80 (99) 97 02/21/18 17:19 95 21 02/21/18 16:00 98.4 37 19 155/78 (103) 96 I/O 02/21/18 02/21/18 02/21/18 02/22/18 02/22/18 02/22/18 07:00 15:00 23:00 07:00 15:00 23:00 Intake Total 200 ml 650 ml 580 ml Output Total 800 ml Balance 200 ml -150 ml 580 ml Intake Oral 0 ml 580 ml IV Total 200 ml 650 ml Output Urine Total 800 ml # Voids 3 3 # Bowel Movements 1 Laboratory Laboratory Tests Test 02/22/18 09:42 02/22/18 09:50 White Blood Count 8.3 Red Blood Count 4.63 Hemoglobin 11.6 Hematocrit 35.0 Mean Corpuscular Volume 75.7 Mean Corpuscular Hemoglobin 25.0 Mean Corpuscular Hemoglobin Concent 33.0 Red Cell Distribution Width 16.9 Platelet Count 310 Mean Platelet Volume 10.1 Blood Urea Nitrogen 6 Creatinine 0.63 Random Glucose 69 Calcium Level 8.5 Sodium Level 139 Potassium Level 3.3 Chloride Level 102 Carbon Dioxide Level 26.6 Anion Gap 10 Estimat Glomerular Filtration Rate 111 Stool C. difficile Toxin (PCR) NEGATIVE Stl C. difficile Toxin Epiderm 027 PRESUMPTIVE NEGATIVE Date/Time Source Procedure Growth Status 02/18/18 18:17 Blood Peripheral Aerobic Blood Culture - Preliminary NO GROWTH IN 4 DAYS Resulted 02/18/18 18:17 Blood Peripheral Anaerobic Blood Culture - Preliminary NO GROWTH IN 4 DAYS Resulted 02/18/18 21:00 Urine Clean Catch Urine Culture - Final NO GROWTH IN 48 HOURS. Complete Imaging Last Impressions Abdomen/Pelvis CT 02/21/18 0000 Signed Impressions: Service Date/Time: Wednesday, February 21, 2018 15:31 - CONCLUSION: 1. Markedly distended urinary bladder 2. Air-filled small bowel status post endoscopy. 3. No evidence of free air or abnormal fluid collections. 4. IUD. Roman Holm MD CT Angiography 02/18/18 1144 Signed Impressions: Service Date/Time: Sunday, February 18, 2018 12:25 - CONCLUSION: 1. Extensive pneumomediastinum and subcutaneous emphysema. Air is seen to surround the thecal sac and extends into the retrocrural region. 2. No pulmonary embolus. David Dominguez MD Chest X-Ray 02/18/18 1054 Signed Impressions: Service Date/Time: Sunday, February 18, 2018 11:00 - CONCLUSION: Subcutaneous emphysema within the right chest wall and right supraclavicular region there no definite pneumothorax is identified on the right on the plain film. CT of the chest would be more sensitive to rule out subtle pneumothorax in this patient if clinically indicated. Gian Mendez MD Upper GI/Barium Swallow X-Ray 02/18/18 0000 Signed Impressions: Service Date/Time: Sunday, February 18, 2018 14:11 - CONCLUSION: Unremarkable examination of the esophagus. No esophageal tear or extravasation was seen. David Dominguez MD Physical Exam HEENT: Pupils round and reactive to light; normocephalic; atraumatic; oral cavity clean, speech is clear NECK: Neck supple, no obvious edema CHEST: Breath sounds regular without shortness CARDIAC: Regular rate and rhythm ABDOMEN: Soft, nondistended, nontender; no hepatosplenomegaly; bowel sounds are present in all four quadrants. EXTREMITIES: No edema. SKIN: Normal; no rash; no jaundice. RN CRITICAL CARE: No focal deficits; alert and oriented times three. (Elissa Mc) Assessment and Plan Plan Assessment: - Pneumomediastinum- Pt admits to chest pain that began yesterday. Denies nausea and vomiting, however admits to dry heaving yesterday, denies forceful retching. Denies history of EGD. Cardiothoracic surgery consult has already been placed. Barium swallow done, results pending. Pt on RA, in no apparent distress during my exam. NC at bedside is on but she is not wearing it - Abdominal pain- diffuse- states for the past three days- also complaining of chronic constipation- last BM was Tuesday CT abdomen and pelvis - No free intraperitoneal air. Pt has never had colonoscopy 02/20/18 upper GI series barium swallow on 02/18/18 unremarkable exam of the esophagus no esophageal tear seen. Nausea improving, no vomiting today. Hemoglobin stable at 9.8. Tolerating clear liquids. Cardiothoracic surgery consult pending 02/21/18 EGD unremarkable except for a few gastric nodules, probable benign 02/22/18, patient feeling much better no nausea vomiting diarrhea or constipation. Was seen per cardiothoracic surgeon who felt her extreme coughing and retching could've caused her symptoms. Okay from a GI standpoint Plan: Biopsies pending explained to the patient to call office if she had not heard from the biopsies in 7-10 days. Follow-up as outpatient as warranted, biopsies pending Dulcolax supp if needed Further recommendations based on clinical findings and course, okay from a GI standpoint for discharge Pt has been seen and examined by myself and Dr. Silva and this note is written on his behalf (Elissa Mc) Physician Comments Patient seen and examined Agree with above Continue with current supportive care Monitor labs (Amarjit Silva MD) Elissa Mc Feb 22, 2018 14:43 Amarjit Silva MD Feb 22, 2018 23:04
== END 2018-02-22 15:07 | disposition home or self-care (01) | DRG 200 ==
LOC: NEPD 09:43 → NEDA 13:35 → HIMN 16:50 → N07A 02-19 14:46
PROVIDERS: ADMIT Hospitalist; ATTEND Hospitalist
PROC: 0DB68ZX Excision of Stomach, Via Natural or Artificial Opening Endoscopic, Diagnostic (ICD-10-PCS; principal; 2018-02-21 14:46)
DX: J98.2 Interstitial emphysema (principal); N17.9 Acute kidney failure, unspecified; A08.4 Viral intestinal infection, unspecified; F12.90 Cannabis use, unspecified, uncomplicated; E87.6 Hypokalemia; K31.89 Other diseases of stomach and duodenum; K59.09 Other constipation; R11.2 Nausea with vomiting, unspecified
CPT/HCPCS: 71045; 71275; 74176; 74177; 74220; 80048; 80053; 81001; 82948; 83605; 83690; 83735; 84100; 84703; 85025; 85027; 87040; 87086; 87493; 88305; 88312; 93005; 94150; 96361; 96365; 96375; C9113; J0131; J1170; J1450; J2270; J2405; J2543; J3480; J7030; J7120; Q9963; Q9967